=== PATIENT | male | born 1935 | race Caucasian/White ===

== ENCOUNTER → 2020-04-24 | Outpatient (CLI) | payer MEDICARE, BC ==
[~2020-04-24] MED LIST: BIMA01SOL OS; COMB0.2S OS; SIMV40TA20 PO
== END ==
LOC: M LABSMTC 10:18
PROVIDERS: ATTEND Anesthesiology
DX: Z01.818 Encounter for other preprocedural examination (principal); Z11.59 Encounter for screening for other viral diseases
CPT/HCPCS: C9803; U0003

== ENCOUNTER 2020-04-27 07:52 | Day surgery (SDC) | payer MEDICARE, BC ==
[~2020-04-27] VITALS: Ht 177.8 cm; Wt 88.5 kg
[~2020-04-27 07:52] MED LIST changes: +ACETAMINOPHEN 325 MG TAB PO PRN; +ACETYLCHOLINE OPHTH SOLN 1% 2ML (MIOCHOL-E) As Ordered ONE; +BALANCED SALT IRRIGATION SOLUTION 500ML BAG (FOR OR EYE MACHINE) As Ordered ONE; +CEFUROXIME 1MG/0.1ML INTRACAMERAL INJ As Ordered ONE; +HEALON DUET PRO(HEALON 10MG/ML 0.55ML & HEALON ENDOCOAT 30MG/ML 0.85ML) As Ordered ONE; +LIDOCAINE 1% SDV 5ML VIAL As Ordered ONE; +LIDOCAINE 3.5 % 1ML OPHTH TOPICAL GEL OU ONE; +POVIDONE-IODINE 5% OPHTH PREP SOL 30ML As Ordered ONE; +PROPARACAINE 0.5% OPHTH SOL 15ML OS PRN; +mitoMYcin 0.2 MG/VIAL KIT FOR OPHTHALMIC USE (J7315 PER 0.2MG) As Ordered ONE
[2020-04-27] MEDS ORDERED: MIDAZOLAM INJ 2MG/2ML VIAL (J2250 PER 1MG) As Ordered ONE (09:00)
[2020-04-27] MEDS ORDERED: fentaNYL 100 MCG/2 ML INJECTION (J3010) As Ordered ONE (09:00)
[2020-04-27] MEDS ORDERED: KETOROLAC 0.5% OPHTH SOLN OS ONE (10:00)
[2020-04-27] MEDS ORDERED: TRIMETHOBENZAMIDE 300 MG CAP PO PRN (10:00)
[2020-04-27] MEDS ORDERED: AcetaZOLAMIDE 500 MG ER CAP PO ONE (10:00)
[2020-04-27 10:20] VITALS: BP 165/92
--- NOTE | 2020-05-05 10:12 | RO ---
DATE OF PROCEDURE: 04/27/2020 PREPROCEDURE DIAGNOSIS: Open angle glaucoma left eye. POSTPROCEDURE DIAGNOSIS: Open angle glaucoma left eye. PROCEDURE PERFORMED: Insertion of Xen implant. SURGEON: Nisa Conrad MD TUBER MACHINE CUTTER: ANESTHESIA: Topical with sedation. DESCRIPTION OF PROCEDURE: The patient was prepped and draped in the usual fashion. A lid speculum was placed between the lids. The eye was fixated. A stab incision was made to the anterior chamber at approximately the 2 o'clock position. 1% nonpreserved lidocaine was instilled and viscoelastic was instilled. The eye was refixated and 1.8 mm keratome was used to make a clear corneal temporal limbal incision approximately at the 5 o'clock position. Mitomycin was then injected subconjunctivally over the superior nasal quadrant and with a wet cotton tip was gently massaged back towards the globe to clear off the area. The fixation device was placed through the fixation incision at the 2 o'clock position and the Xen was placed through the main incision. The needle went across the eye through the trabecular meshwork was visualized underneath the conjunctiva. The Xen was gently inserted with no difficulty. A bleb immediately formed. The Healon was irrigated out and the wound hydrated and cefuroxime installed. The patient tolerated the procedure well and went to the recovery room in stable condition.
== END 2020-04-27 10:25 | disposition home or self-care (01) ==
LOC: M SDC 07:52
PROVIDERS: ATTEND Ophthalmology
DX: H40.812 Glaucoma with increased episcleral venous pressure, left eye (principal)
CPT/HCPCS: 66183; C1783; J2250; J3010; J7315

== ENCOUNTER 2021-07-07 12:34 | Inpatient (IN) | payer MEDICARE, BC ==
[~2021-07-07] VITALS: Ht 172.7 cm; Wt 83.7 kg
[~2021-07-07 12:34] MED LIST changes: -ACETAMINOPHEN 325 MG TAB PO PRN; -ACETYLCHOLINE OPHTH SOLN 1% 2ML (MIOCHOL-E) As Ordered ONE; -BALANCED SALT IRRIGATION SOLUTION 500ML BAG (FOR OR EYE MACHINE) As Ordered ONE; -CEFUROXIME 1MG/0.1ML INTRACAMERAL INJ As Ordered ONE; -HEALON DUET PRO(HEALON 10MG/ML 0.55ML & HEALON ENDOCOAT 30MG/ML 0.85ML) As Ordered ONE; -LIDOCAINE 1% SDV 5ML VIAL As Ordered ONE; -LIDOCAINE 3.5 % 1ML OPHTH TOPICAL GEL OU ONE; -POVIDONE-IODINE 5% OPHTH PREP SOL 30ML As Ordered ONE; -PROPARACAINE 0.5% OPHTH SOL 15ML OS PRN; -mitoMYcin 0.2 MG/VIAL KIT FOR OPHTHALMIC USE (J7315 PER 0.2MG) As Ordered ONE
[2021-07-07] MEDS ORDERED: LIDOCAINE 2% 5ML JELLY UROJET TOP ONE (15:15)
[2021-07-07 16:24] LABS: APPEARANCE, URINE MANUAL TURBID (CLEAR); COLOR, URINE MANUAL RED (YELLOW)
[2021-07-07 16:25] LABS: PH,URINE MAN OBSCURED UNITS (5.0 - 7.0)
[2021-07-07 16:32] LABS: BILIRUBIN, URINE MANUAL OBSCURED (NEGATIVE); BLOOD URINE MANUAL POSITIVE (NEGATIVE); KETONE, URINE MANUAL OBSCURED mg/dL (NEGATIVE); LEUKOCYTE ESTERASE, URINE MAN OBSCURED (NEGATIVE); NITRITE, URINE MANUAL OBSCURED (NEGATIVE); SPECIFIC GRAVITY,URINE MANUAL 1.024 (1.002-1.035); UROBILINOGEN, URINE MANUAL OBSCURED mg/dl (NORMAL)
[2021-07-07 16:42] LABS: GLUCOSE, URINE (UA) MANUAL NEGATIVE (NEGATIVE); PROTEIN, URINE MANUAL 3+ mg/dL (NEGATIVE)
[2021-07-07] MEDS ORDERED: ACETAMINOPHEN 500 MG TAB PO ONE (16:45)
[2021-07-07 16:57] LABS: BACTERIA, URINE SMALL AMOUNT; HYALINE CAST, URINE NONE SEEN /lpf (0-1); RBC, URINE TNTC /hpf (0-3); SQUAMOUS EPITHELIAL CELL URINE NONE SEEN /hpf (SMALL AMT); WBC, URINE 30-40 /hpf (0-3)
[2021-07-07 18:16] LABS: BASO % 0.2 % (0.0-1.0); HEMATOCRIT 40.9 % (42.0-52.0); HEMOGLOBIN 14.1 g/dl (13.5-17.5); LYMPH # 0.7 10^3/uL (1.5-5.0); LYMPH % 6.7 % (24.0-44.0); MEAN CORPUSCULAR HEMOGLOBIN 32.9 pg (27.0-33.0); MEAN CORPUSCULAR HGB CONC 34.5 g/dl (32.0-36.5); MEAN CORPUSCULAR VOLUME 95.3 fl (80.0-96.0); MONO # 0.4 10^3/uL (0.0-0.8); MONO % 4.1 % (2.0-8.0); NEUTROPHILS # 9.2 10^3/uL (1.5-8.5); NEUTROPHILS % 88.7 % (36.0-66.0); PLATELET COUNT, AUTOMATED 182 10^3/uL (150-450); RED BLOOD COUNT 4.29 10^6/uL (4.30-6.10); WHITE BLOOD COUNT 10.4 10^3/uL (4.0-10.0)
--- NOTE | 2021-07-07 18:21 | REPVR ---
PROCEDURE INFORMATION: Exam: CT Abdomen And Pelvis Without Contrast Exam date and time: 07/07/2021 5:20 PM Age: 85 years old Clinical indication: Abdominal pain; Prior surgery; Additional info: Diffuse abd pain, hematuria/urinary retention TECHNIQUE: Imaging protocol: Computed tomography of the abdomen and pelvis without contrast. Radiation optimization: All CT scans at this facility use at least one of these dose optimization techniques: automated exposure control; mA and/or kV adjustment per patient size (includes targeted exams where dose is matched to clinical indication); or iterative reconstruction. COMPARISON: No relevant prior studies available. FINDINGS: Limitations: Absence of intravenous contrast limits evaluation of vascular and visceral structures. Mediastinal space: There is a small hiatal hernia. Liver: There are no focal liver lesions. Gallbladder and bile ducts: Cholelithiasis. Pancreas: The pancreas is normal. Spleen: The spleen is unremarkable. Adrenal glands: The adrenal glands are unremarkable. Kidneys and ureters: No right hydronephrosis or renal calculi. There is mild perinephric stranding. There are multiple left renal calculi largest measures 4.5 mm. There is also an exophytic left renal lesion measuring 2 cm. It is poorly characterized but may be solid. There is no left hydronephrosis. Perinephric stranding is apparent. Stomach and bowel: There is no evidence of intestinal obstruction. Appendix: No evidence of appendicitis. Intraperitoneal space: Unremarkable. No free air. No significant fluid collection. Vasculature: There is no evidence of an infrarenal abdominal aortic aneurysm. There is mild atherosclerotic calcification. Lymph nodes: Unremarkable. No enlarged lymph nodes. Urinary bladder: There is a Butler catheter in the urinary bladder which appears to be distended with radiodense material possibly representing blood clot. Bladder tumor cannot be excluded due to the large amount of radiodense material. Reproductive: Prostatic enlargement. Bones/joints: Skeletal degeneration. Soft tissues: Unremarkable. IMPRESSION: 1. Cholelithiasis. 2. Urinary bladder is likely filled with hemorrhage. 3. 2 cm exophytic left renal lesion which could represent a hemorrhagic cyst or solid mass. There also left renal calculi. Recommend non-emergent MRI without and with contrast or non-emergent CT without and with contrast. COMMENTS: Consistent with the [employer]'s Incidental Findings Committee white paper (J Am Guerline Radiol 2018): Any incidental renal lesion less than 1 cm or classified as too small to characterize, or any incidental cystic renal lesion characterized as simple-appearing, is likely benign. No follow-up imaging is recommended for these lesions per consensus recommendations based on imaging criteria. Electronically signed by: Donna Bernabe On 07/07/2021 18:20:52 PM
[2021-07-07 18:29] LABS: INR 1.12; PROTHROMBIN TIME 14.8 SECONDS (12.7-14.5)
[2021-07-07 18:30] LABS: PARTIAL THROMBOPLASTIN TIME 31.2 SECONDS (25.9-37.0)
[2021-07-07 18:44] LABS: RSV AMPLIFICATION NEGATIVE (NEGATIVE)
[2021-07-07 18:46] LABS: ALBUMIN 3.7 GM/DL (3.2-5.2); ALT/SGPT 34 U/L (12-78); BILIRUBIN,DIRECT 0.2 MG/DL (0.0-0.2); BILIRUBIN,TOTAL 0.7 MG/DL (0.2-1.0); BLOOD UREA NITROGEN 18 MG/DL (7-18); CALCIUM LEVEL 9.3 MG/DL (8.8-10.2); CARBON DIOXIDE LEVEL 28 MEQ/L (21-32); CHLORIDE LEVEL 109 MEQ/L (98-107); CREATININE FOR GFR 0.95 MG/DL (0.70-1.30); GLOMERULAR FILTRATION RATE > 60.0 (>35); GLUCOSE, FASTING 145 MG/DL (70-100); LIPASE 49 U/L (73-393); POTASSIUM SERUM 4.3 MEQ/L (3.5-5.1); SODIUM LEVEL 143 MEQ/L (136-145); TOTAL PROTEIN 6.4 GM/DL (6.4-8.2)
[2021-07-07] MEDS ORDERED: ICAPCAP3 PO (20:00)
[2021-07-07] MEDS ORDERED: D 1010004 PO (20:00)
[2021-07-07] MEDS ORDERED: HOME MED LIST COMPLETE! XX SCH (20:05)
[2021-07-07] MEDS ORDERED: ACETAMINOPHEN TAB 650MG DOSE (2X325MG) PO PRN (20:20)
[2021-07-07] MEDS ORDERED: NS 1,000 ML IV SCH (21:45)
--- NOTE | 2021-07-07 21:53 | HPEPDOC ---
General Date of Admission Jul 07, 2021 at 20:19 Date of Service: Jul 07, 2021 Chief Complaint The patient is a 85-year-old male admitted with a reason for visit of Urinary Retention, Uti. 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 Pt reports he self caths four times daily for past 4 years and last night he noted it was bloody. He did describe clots today and came to ED. Pt reports some mild abdominal cramping lower. BS completed and pt found to have 600ml retention. Pt was manually irrigated by urology and pain relieved in ED. Pt denies sob, cp, fever/chills, constipation, sinus congestions or cough. He describes no recent blood thinners or hx of bladder cancer or cysts. He underwent CT a/p which showed likely hemorrhage in bladder and renal lesion / cysts of left kidney with recommendations of further imaging.. Pt will be admitted for further eval and management of presenting concerns. Home Medications Scheduled Antiox.mv No.10/Omeg3s/Lut/Kayli (I-Caps with Lutein-[place] 3 Sfg) 1 Each Capsule, 1 CAP PO DAILY, (Reported) Cholecalciferol (Vitamin D3) (Vitamin D3) 25 Mcg Capsule, 25 MCG PO DAILY, (Reported) Simvastatin (Simvastatin) 40 Mg Tablet, 40 MG PO QHS, (Reported) Allergies Coded Allergies: No Known Allergies (Unverified , 04/21/20) Past Medical History Medical History self cath d/t bladder muscle atrophy, hdl, NIDDM, glaucoma Surgical History TURP Family History Significant Family History: No pertinent family hx Social History * Smoker: current smoker, cigar Alcohol: rarely Drugs: denies Recent Travel/Sick Contacts: Denies: Recent travel, Recent sick contacts Psychosocial History: No pertinent psych hx A-FIB/CHADSVASC A-FIB History Current/History of A-Fib/PAF?: No Current PO Anticoag Therapy: No Review of Systems Constitutional: Denies: Chills, Fever, Night Sweats Eyes: Denies: Pain, Vision change ENT: Denies: Head Aches, Ear Pain, Dysphagia Skin: Denies: Rash, Lesions, Breakdown Pulmonary: Denies: Dyspnea, Cough Cardiovascular: Denies: Chest Pain, Palpitations, Orthopnea, Paroxysmal Noc. Dyspnea, Lt Headedness Gastrointestinal: Reports: Abdominal Pain; Denies: Nausea, Vomiting, Diarrhea Genitourinary: Reports: Hematuria; Denies: Dysuria, Frequency, Incontinence, Retention Hematologic: Denies: Bruising, Bleeding Excessively Musculoskeletal: Denies: Neck Pain, Back Pain, Joint Pain, Muscle Pain, Spasms Neurological: Denies: Weakness, Numbness, Change in speech, Confusion Psych: Reports: Mood Normal; Denies: Depression, Memory Issues Physical Examination General Exam: Positive: Alert, No Acute Distress Eye Exam: Positive: PERRLA, Conjunctiva & lids normal, EOMI; Negative: Sclera icteric ENT Exam: Positive: Atraumatic, Mucous membr. moist/pink, Pharynx Normal Neck Exam: Positive: Supple; Negative: JVD, thyromegaly Chest Exam: Positive: Clear to auscultation, Normal air movement Heart Exam: Positive: Rate Normal, Regular Rhythm, Normal S1, Normal S2, Murmurs; Negative: Rubs Telemetry: Positive: No significant arrhythmia Abdomen Exam: Positive: Normal bowel sounds, Soft; Negative: Tenderness, Hepatospenomegaly Extremity Exam: Positive: Edema (1+ bilateral pedal), Normal pulses; Negative: Clubbing, Cyanosis Skin Exam: Positive: Nl turgor and temperature; Negative: Breakdown, Lesion Neuro Exam: Positive: Normal Gait, Normal Speech, Cranial Nerves 3-12 NL, Reflexes 2+ Psych Exam: Positive: Mental status NL, Mood NL, Oriented x 3 Other physical findings bright red gross hematuria to wood with saline irrigation. minimal clots noted Vital Signs Vital Signs Date Time Temp Pulse Resp B/P (MAP) Pulse Ox O2 Delivery O2 Flow Rate FiO2 07/07/21 16:29 97.7 99 18 118/78 (91) 98 Room Air Laboratory Data Labs 24H Laboratory Tests 2 07/07/21 15:00: Bedside Urine Color (LAB) REDH, Bedside Urine Appearance (LAB) TURBIDH, Bedside Urine pH (LAB) OBSCUREDH, Bedside Urine Specific [place] (LAB 1.024, Bedside Urine Protein (LAB) 3+H, Bedside Urine Glucose (UA) NEGATIVE, Bedside Urine Ketones (LAB) OBSCUREDH, Bedside Urine Blood POSITIVEH, Bedside Urine Nitrite (LAB) OBSCUREDH, Bedside Urine Bilirubin (LAB) OBSCUREDH, Bedside Urine Urobilinogen (LAB) OBSCUREDH, Bedside Urine Leukocyte Esterase (L OBSCUREDH, Urine Sediment Examination UNSPUN, Urine RBC TNTCH, Urine WBC 30-40H, Urine Squamous Epithelial Cells NONE SEEN, Urine Bacteria SMALL AMOUNTH, Urine Hyaline Casts NONE SEEN 07/07/21 16:05: Immature Granulocyte % (Auto) 0.3, Neutrophils (%) (Auto) 88.7H, Lymphocytes (%) (Auto) 6.7L, Monocytes (%) (Auto) 4.1, Eosinophils (%) (Auto) 0.0, Basophils (%) (Auto) 0.2, Neutrophils # (Auto) 9.2H, Lymphocytes # (Auto) 0.7L, Monocytes # (Auto) 0.4, Eosinophils # (Auto) 0.0, Basophils # (Auto) 0.0, Nucleated Red Blood Cells % (auto) 0.0, Anion Gap 6L, Glomerular Filtration Rate > 60.0, Calcium Level 9.3, Total Bilirubin 0.7, Direct Bilirubin 0.2, Aspartate Amino Transf (AST/SGOT) 22, Alanine Aminotransferase (ALT/SGPT) 34, Alkaline Phosphatase 65, Total Protein 6.4, Albumin 3.7, Albumin/Globulin Ratio 1.4, Lipase 49L 07/07/21 16:17: Prothrombin Time 14.8H, Prothromb Time International Ratio 1.12, Activated Partial Thromboplast Time 31.2 07/07/21 17:48: Coronavirus (COVID-19)(PCR) NEGATIVE, Influenza Type A (RT-PCR) NEGATIVE, Influenza Type B (RT-PCR) NEGATIVE, Respiratory Syncytial Virus (PCR) NEGATIVE 07/07/21 20:49: Lactic Acid Level 1.9 CBC/BMP Laboratory Tests 07/07/21 16:05 Microbiology Microbiology 07/07/21 Urine Culture, Received Pending RAD Interpretation STUDY: CT abdomen pelvis Rad Actions: Report Reviewed RAD Interpretation: Other Result Comments: (2 cm exophytic left renal lesion which could represent a hemorrhagic cyst or mass. Recommendations for nonemergent further imaging.) Assessment/Plan 1. Hematuria in pt with history of TURP: Patient reports daily self catheterization for several years. He denies any trauma or history of hematuria. CT reports likely hemorrhage and bladder. Plan for CBI appreciate urology recommendations. Monitor H&H. *Patient is agreeable to blood if he should require transfusion. He believes he may have had a transfusion in the past when he had his procedure done years ago but is not sure. 2. Exophytic left renal lesion/ cyst: Possible hemorrhagic cyst or mass. Plan for further imaging tomorrow. Monitor patient symptoms and H&H per *CT also noted renal calculi -patient with no further abdominal discomfort or back pain. No hydronephrosis process or ureteral obstruction noted. 3. Leukocytosis; presumed UTI: Pt with self cath and likely colonized. He is fortunately without systematic complaints. Monitor for worsening s/s infection. Will cover empirically at present. 4. NIDDM: Patient reports that he has not required any insulin after managing with diet and exercise. Will check A1c and consider coverage pending patient response. 5. Murmur: Pt denies hx. Plan for monitoring. EKG. Consider echo. 6. HDL: Continue statin DVT prophylaxis: SCDs CODE: FULL Dispo: Anticipate 2 nights Plan / VTE VTE Prophylaxis Ordered?: Yes KELVIN DEVLIN NP Jul 07, 2021 21:52
--- NOTE | 2021-07-07 22:20 | SMCUROLCON ---
Urology Consultation General Date of Consultation 07/07/21 Reason For Consultation This patient is seen for Urinary Retention, Uti. 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 Pt reports he self caths four times daily and last night he noted it was bloody. He did describe clots today and came to ED. Pt reports some mild abdominal cramping lower. BS completed and pt found to have 600ml retention. Pt was manually irrigated and pain relieved in ED. Pt denies sob, cp, fever/chills, constipation, sinus congestions or cough. He describes no recent blood thinners or hx of bladder cancer or cysts. He underwent CT a/p whic h showed likely hemorrhage of bladder and renal lesion / cysts of left kidney with recommendations of further imaging tomorrow. Pt will be admitted for further eval and CBI. Medications Current Medications Current Medications Medications (Trade) Dose Ordered Sig/[place] Route PRN Reason Start Time Stop Time Status Last Admin Dose Admin Acetaminophen (Tylenol Tab) 650 mg Q4H PRN PO MILD PAIN or TEMP > 101 07/07/21 20:20 Ceftriaxone Sodium 1 gm/ Dextrose 50 ml @ 100 mls/hr Q24H IV 07/07/21 22:00 Fish Oil ([place]-3 (1000mg)) 1 cap DAILY PO 07/08/21 09:00 Home Med (Home Med List Complete!) ASDIRECTED XX 07/07/21 20:05 07/07/21 20:05 DC Multivitamins (Ocuvite(I-Maia)) 1 tab DAILY PO 07/08/21 09:00 Simvastatin (Zocor) 40 mg QHS PO 07/07/21 21:00 Sodium Chloride 1,000 ml @ 75 mls/hr [id number] IV 07/07/21 21:45 07/08/21 11:04 Vitamin D (Vitamin D) 1,000 units DAILY PO 07/08/21 09:00 Allergies Allergies: Coded Allergies: No Known Allergies (Unverified , 04/21/20) Review of Systems General: Denies: ROS Unobtainable, Chills, Night Sweats, Fatigue, Malaise, Normal Appetite, Other Symptoms Constitutional: Denies: Fever, Chills, Sweats, Weakness, Malaise, Other Eyes: Denies: Pain, Vision change, Conjunctivae inflammation, Eyelid inflammation, Redness, Other Skin: Denies: Rash, Lesions, Jaundice, Bruising, Itching, Dry, Breakdown, Nail Changes, Other Gastrointestinal: Denies: Nausea, Vomiting, Abdominal Pain, Diarrhea, Constipation, Melena, Hematochezia, Other Symptoms Genitourinary: Reports: Retention Hematologic: Denies: Bruising, Bleeding Excessively, Petecchia, Purpura, Enlarged Lymph Nodes, Other Hematologic Endocrine: Denies: Polydipsia, Polyphagia, Polyuria, Heat Intolerance, Cold Intolerance, Other Endocrine Sx Physical Examination General Exam: Alert, Cooperative, No Acute Distress EYE EXAM: Conjunctiva & lids normal ENT EXAM: Atraumatic, Mucous membr. moist/pink, Tongue Midline Neck Exam: Supple Chest Exam: Clear to auscultation Heart Exam: Rate Normal Abdomen Exam: BS Hyperactive, BS Hypoactive, Soft, Other; No: Normal Bowel Sounds, Tenderness, Hepatospenomegaly, Mass, Hernia Male Exam: Normal Genital Exam Extremity Exam: No: Clubbing, Cyanosis, Edema, Normal Pulses, Tenderness, Swelling, Other Vital Signs/I&O Vital Signs Date Time Temp Pulse Resp B/P (MAP) Pulse Ox O2 Delivery O2 Flow Rate FiO2 07/07/21 22:04 97.1 95 18 113/78 (90) 98 Room Air Laboratory Data 24H Labs Laboratory Tests 2 07/07/21 15:00: Bedside Urine Color (LAB) REDH, Bedside Urine Appearance (LAB) TURBIDH, Bedside Urine pH (LAB) OBSCUREDH, Bedside Urine Specific [place] (LAB 1.024, Bedside Urine Protein (LAB) 3+H, Bedside Urine Glucose (UA) NEGATIVE, Bedside Urine Ketones (LAB) OBSCUREDH, Bedside Urine Blood POSITIVEH, Bedside Urine Nitrite (LAB) OBSCUREDH, Bedside Urine Bilirubin (LAB) OBSCUREDH, Bedside Urine Urobilinogen (LAB) OBSCUREDH, Bedside Urine Leukocyte Esterase (L OBSCUREDH, Urine Sediment Examination UNSPUN, Urine RBC TNTCH, Urine WBC 30-40H, Urine Squamous Epithelial Cells NONE SEEN, Urine Bacteria SMALL AMOUNTH, Urine Hyaline Casts NONE SEEN 07/07/21 16:05: Immature Granulocyte % (Auto) 0.3, Neutrophils (%) (Auto) 88.7H, Lymphocytes (%) (Auto) 6.7L, Monocytes (%) (Auto) 4.1, Eosinophils (%) (Auto) 0.0, Basophils (%) (Auto) 0.2, Neutrophils # (Auto) 9.2H, Lymphocytes # (Auto) 0.7L, Monocytes # (Auto) 0.4, Eosinophils # (Auto) 0.0, Basophils # (Auto) 0.0, Nucleated Red Blood Cells % (auto) 0.0, Anion Gap 6L, Glomerular Filtration Rate > 60.0, Calcium Level 9.3, Total Bilirubin 0.7, Direct Bilirubin 0.2, Aspartate Amino Transf (AST/SGOT) 22, Alanine Aminotransferase (ALT/SGPT) 34, Alkaline Phosphatase 65, Total Protein 6.4, Albumin 3.7, Albumin/Globulin Ratio 1.4, Lipase 49L 07/07/21 16:17: Prothrombin Time 14.8H, Prothromb Time International Ratio 1.12, Activated Partial Thromboplast Time 31.2 07/07/21 17:48: Coronavirus (COVID-19)(PCR) NEGATIVE, Influenza Type A (RT-PCR) NEGATIVE, Influenza Type B (RT-PCR) NEGATIVE, Respiratory Syncytial Virus (PCR) NEGATIVE 07/07/21 20:49: Lactic Acid Level 1.9 CBC/BMP Laboratory Tests 07/07/21 16:05 Microbiology Microbiology 07/07/21 Urine Culture, Received Pending Assessment Patient 85 years old with CIC for 4 to 5 years status post TURP. Patient cath himself today I received significant hematuria return. A cath 22 Swedish with 30 cc balloon was placed without difficulty. Balloon initially had 10 cc. I noticed this during my evaluation and we increased the the balloon to 30 cc. I performed manual irrigation of the bladder and remove the great deal of clot. At the end of irrigation x3 the urine was cardona Jim-Aid colored. Plan Admit patient Continue CBI. Time Spent on Consult: Time Spent / Consult (Minutes): 40 (bladder irrigation 30 mins. consultation with patient 10) DELORES LIM MD Jul 07, 2021 22:20
[2021-07-07] MEDS: SIMVASTATIN 40 MG TAB PO SCH (22:46)
[2021-07-07] MEDS: cefTRIAXone SOD 1 GM in D5W MINI-BAG PLUS 50 ML IV SCH (22:48)
[2021-07-07 23:00] VITALS: BP 121/80
[2021-07-08 00:58] LABS: HEMATOCRIT 35.6 % (42.0-52.0); HEMOGLOBIN 12.4 g/dl (13.5-17.5)
[2021-07-08 06:00] VITALS: BP 119/79
[2021-07-08 06:41] LABS: BASO % 0.3 % (0.0-1.0); HEMATOCRIT 34.7 % (42.0-52.0); HEMOGLOBIN 11.9 g/dl (13.5-17.5); LYMPH # 1.2 10^3/uL (1.5-5.0); LYMPH % 11.2 % (24.0-44.0); MEAN CORPUSCULAR HEMOGLOBIN 33.2 pg (27.0-33.0); MEAN CORPUSCULAR HGB CONC 34.3 g/dl (32.0-36.5); MEAN CORPUSCULAR VOLUME 96.9 fl (80.0-96.0); MONO # 0.8 10^3/uL (0.0-0.8); MONO % 7.5 % (2.0-8.0); NEUTROPHILS # 8.3 10^3/uL (1.5-8.5); NEUTROPHILS % 80.6 % (36.0-66.0); PLATELET COUNT, AUTOMATED 187 10^3/uL (150-450); RED BLOOD COUNT 3.58 10^6/uL (4.30-6.10); WHITE BLOOD COUNT 10.3 10^3/uL (4.0-10.0)
[2021-07-08 06:44] LABS: HEMATOCRIT 34.6 % (42.0-52.0); HEMOGLOBIN 11.8 g/dl (13.5-17.5)
[2021-07-08 07:02] LABS: HEMOGLOBIN A1c 5.7 %
[2021-07-08 07:04] LABS: BLOOD UREA NITROGEN 22 MG/DL (7-18); CALCIUM LEVEL 8.8 MG/DL (8.8-10.2); CARBON DIOXIDE LEVEL 25 MEQ/L (21-32); CHLORIDE LEVEL 110 MEQ/L (98-107); CREATININE FOR GFR 0.74 MG/DL (0.70-1.30); GLOMERULAR FILTRATION RATE > 60.0 (>35); GLUCOSE, FASTING 147 MG/DL (70-100); SODIUM LEVEL 143 MEQ/L (136-145)
--- NOTE | 2021-07-08 07:32 | IPNPDOC ---
Subjective Review oF Systems Chief Complaint The patient is a 85-year-old male admitted with a reason for visit of Urinary Retention, Uti. Events since Last Encounter Stable throughout the night. CBI on low with nico aid colored urine. need for irrigation x 1 Objective Physical Examination Heart Exam: Positive: Rate Normal, Regular Rhythm, Normal S1, Normal S2, Murmurs; Negative: Rubs ABDOMEN EXAM: Soft; No: Normal bowel sounds, Tenderness Vital Signs/I&O Vital Signs Date Time Temp Pulse Resp B/P (MAP) Pulse Ox O2 Delivery O2 Flow Rate FiO2 07/08/21 06:00 97.7 92 18 119/79 (92) 96 Room Air I&O- Last 24 Hours up to 6 AM 07/08/21 06:00 Intake Total 212 ml Output Total 1000 ml Balance -788 ml Laboratory Data Labs 24H Laboratory Tests 2 07/07/21 15:00: Bedside Urine Color (LAB) REDH, Bedside Urine Appearance (LAB) TURBIDH, Bedside Urine pH (LAB) OBSCUREDH, Bedside Urine Specific [place] (LAB 1.024, Bedside Urine Protein (LAB) 3+H, Bedside Urine Glucose (UA) NEGATIVE, Bedside Urine Ketones (LAB) OBSCUREDH, Bedside Urine Blood POSITIVEH, Bedside Urine Nitrite (LAB) OBSCUREDH, Bedside Urine Bilirubin (LAB) OBSCUREDH, Bedside Urine Urobilinogen (LAB) OBSCUREDH, Bedside Urine Leukocyte Esterase (L OBSCUREDH, Urine Sediment Examination UNSPUN, Urine RBC TNTCH, Urine WBC 30-40H, Urine Squamous Epithelial Cells NONE SEEN, Urine Bacteria SMALL AMOUNTH, Urine Hyaline Casts NONE SEEN 07/07/21 16:05: Immature Granulocyte % (Auto) 0.3, Neutrophils (%) (Auto) 88.7H, Lymphocytes (%) (Auto) 6.7L, Monocytes (%) (Auto) 4.1, Eosinophils (%) (Auto) 0.0, Basophils (%) (Auto) 0.2, Neutrophils # (Auto) 9.2H, Lymphocytes # (Auto) 0.7L, Monocytes # (Auto) 0.4, Eosinophils # (Auto) 0.0, Basophils # (Auto) 0.0, Nucleated Red Blood Cells % (auto) 0.0, Anion Gap 6L, Glomerular Filtration Rate > 60.0, Calcium Level 9.3, Total Bilirubin 0.7, Direct Bilirubin 0.2, Aspartate Amino Transf (AST/SGOT) 22, Alanine Aminotransferase (ALT/SGPT) 34, Alkaline Phosphatase 65, Total Protein 6.4, Albumin 3.7, Albumin/Globulin Ratio 1.4, Lipase 49L 07/07/21 16:17: Prothrombin Time 14.8H, Prothromb Time International Ratio 1.12, Activated Partial Thromboplast Time 31.2 07/07/21 17:48: Coronavirus (COVID-19)(PCR) NEGATIVE, Influenza Type A (RT-PCR) NEGATIVE, I nfluenza Type B (RT-PCR) NEGATIVE, Respiratory Syncytial Virus (PCR) NEGATIVE 07/07/21 20:49: Lactic Acid Level 1.9 07/08/21 06:08: Immature Granulocyte % (Auto) 0.4, Neutrophils (%) (Auto) 80.6H, Lymphocytes (%) (Auto) 11.2L, Monocytes (%) (Auto) 7.5, Eosinophils (%) (Auto) 0.0, Basophils (%) (Auto) 0.3, Neutrophils # (Auto) 8.3, Lymphocytes # (Auto) 1.2L, Monocytes # (Auto) 0.8, Eosinophils # (Auto) 0.0, Basophils # (Auto) 0.0, Nucleated Red Blood Cells % (auto) 0.0, Anion Gap 8, Glomerular Filtration Rate > 60.0, Estimated Mean Plasma Glucose 117H, Hemoglobin A1c 5.7, Calcium Level 8.8 CBC/BMP Laboratory Tests 07/07/21 16:05 07/08/21 00:43 07/08/21 06:08 Microbiology Microbiology 07/07/21 Urine Culture, Received Pending Assessment/Plan Date Seen The patient was seen on 07/08/21. Patient Summary Pt with CBI. Urine still not totally clear. Plan/VTE VTE Prophylaxis Ordered?: Yes Plan Continue CBI at this time Will continue to evaluated for need of intraoperative clot evac. DELORES LIM MD Jul 08, 2021 07:32
[2021-07-08] MEDS: OMEGA-3 1000MG CAPSULE PO SCH (09:01)
[2021-07-08] MEDS: VITAMIN D 1,000 INTERNATIONAL UNITS TABLET PO SCH (09:01)
[2021-07-08] MEDS: OCUVITE 1 TAB PO SCH (09:01)
--- NOTE | 2021-07-08 09:13 | ECGEPIP ---
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
--- NOTE | 2021-07-08 12:23 | IPNPDOC ---
Subjective Date Seen The patient was seen on 07/08/21. Subjective Chief Complaint/HPI Patient does not have any complaints at this time. He did have some crampy lower abdominal pains earlier in the morning and overnight. He did need 1 manual bladder irrigation of clots overnight. He is on CBI with pink-colored output. Objective Physical Examination General Exam: Positive: Alert, Cooperative, No Acute Distress Eye Exam: Positive: PERRLA, Conjunctiva & lids normal, EOMI; Negative: Sclera icteric ENT Exam: Positive: Atraumatic, Mucous membr. moist/pink, Pharynx Normal Neck Exam: Positive: Supple; Negative: JVD, thyromegaly Chest Exam: Positive: Clear to auscultation, Normal air movement Heart Exam: Positive: Rate Normal, Regular Rhythm, Normal S1, Normal S2, Mu rmurs (Systolic murmur heard at the base of the heart as well as in the mitral area); Negative: Rubs Telemetry: Positive: No significant arrhythmia Abdomen Exam: Positive: Normal bowel sounds, Soft, Other (Abdominal bruit heard all over the midline from epigastric to hypogastric region); Negative: Tenderness Extremity Exam: Negative: Clubbing, Cyanosis, Edema Skin Exam: Positive: Nl turgor and temperature; Negative: Breakdown, Lesion Neuro Exam: Positive: Normal Speech, Strength at 5/5 X4 ext, Normal Tone Psych Exam: Positive: Memory Intact, Oriented x 3 Assessment /Plan Assessment Patient 85 years old with past medical history of hdl, NIDDM, glaucoma 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 Hematuria Etiology to be determined CT abdomen and pelvis showed radiodense material in the bladder likely blood clots. Cannot rule out any underlying bladder cancer CBI discontinued Continue ceftriaxone Patient has been seen by urology. Further plan as per Dr. Payne History of diabetes Now diet controlled A1c 5.7 Hyperlipidemia Continue statin Heart murmur We will get an echo Plan/VTE VTE Prophylaxis Ordered?: Yes VS, I&O, 24H, Fishbone Vital Signs/I&O Vital Signs Date Time Temp Pulse Resp B/P (MAP) Pulse Ox O2 Delivery O2 Flow Rate FiO2 07/08/21 06:00 97.7 92 18 119/79 (92) 96 Room Air I&O- Last 24 Hours up to 6 AM 9/23/21 06:00 Intake Total 212 ml Output Total 1000 ml Balance -788 ml Laboratory Data 24H LABS Laboratory Tests 2 07/07/21 15:00: Bedside Urine Color (LAB) REDH, Bedside Urine Appearance (LAB) TURBIDH, Bedside Urine pH (LAB) OBSCUREDH, Bedside Urine Specific [place] (LAB 1.024, Bedside [place] Protein (LAB) 3+H, Bedside Urine Glucose (UA) NEGATIVE, Bedside Urine Ketones (LAB) OBSCUREDH, Bedside Urine Blood POSITIVEH, Bedside Urine Nitrite (LAB) OBSCUREDH, Bedside Urine Bilirubin (LAB) OBSCUREDH, Bedside Urine Urobilinogen (LAB) OBSCUREDH, Bedside Urine Leukocyte Esterase (L OBSCUREDH, Urine Sediment Examination UNSPUN, Urine RBC TNTCH, Urine WBC 30-40H, Urine Squamous Epithelial Cells NONE SEEN, Urine Bacteria SMALL AMOUNTH, Urine Hyaline Casts NONE SEEN 07/07/21 16:05: Immature Granulocyte % (Auto) 0.3, Neutrophils (%) (Auto) 88.7H, Lymphocytes (%) (Auto) 6.7L, Monocytes (%) (Auto) 4.1, Eosinophils (%) (Auto) 0.0, Basophils (%) (Auto) 0.2, Neutrophils # (Auto) 9.2H, Lymphocytes # (Auto) 0.7L, Monocytes # (Auto) 0.4, Eosinophils # (Auto) 0.0, Basophils # (Auto) 0.0, Nucleated Red Blood Cells % (auto) 0.0, Anion Gap 6L, Glomerular Filtration Rate > 60.0, Calcium Level 9.3, Total Bilirubin 0.7, Direct Bilirubin 0.2, Aspartate Amino Transf (AST/SGOT) 22, Alanine Aminotransferase (ALT/SGPT) 34, Alkaline Phosphatase 65, Total Protein 6.4, Albumin 3.7, Albumin/Globulin Ratio 1.4, Lipase 49L 07/07/21 16:17: Prothrombin Time 14.8H, Prothromb Time International Ratio 1.12, Activated Partial Thromboplast Time 31.2 07/07/21 17:48: Coronavirus (COVID-19)(PCR) NEGATIVE, Influenza Type A (RT-PCR) NEGATIVE, Influenza Type B (RT-PCR) NEGATIVE, Respiratory Syncytial Virus (PCR) NEGATIVE 07/07/21 20:49: Lactic Acid Level 1.9 07/08/21 06:08: Immature Granulocyte % (Auto) 0.4, Neutrophils (%) (Auto) 80.6H, Lymphocytes (%) (Auto) 11.2L, Monocytes (%) (Auto) 7.5, Eosinophils (%) (Auto) 0.0, Basophils (%) (Auto) 0.3, Neutrophils # (Auto) 8.3, Lymphocytes # (Auto) 1.2L, Monocytes # (Auto) 0.8, Eosinophils # (Auto) 0.0, Basophils # (Auto) 0.0, Nucleated Red Blood Cells % (auto) 0.0, Anion Gap 8, Glomerular Filtration Rate > 60.0, Estimated Mean Plasma Glucose 117H, Hemoglobin A1c 5.7, Calcium Level 8.8 CBC/BMP Laboratory Tests 07/07/21 16:05 07/08/21 00:43 07/08/21 06:08 Microbiology Microbiology 07/07/21 Urine Culture - Final, Complete Nicky Garner MD Jul 08, 2021 12:23
[2021-07-08 14:00] VITALS: BP 118/64
[2021-07-08 20:30] VITALS: BP 105/73
[2021-07-08] MEDS: cefTRIAXone SOD 1 GM in D5W MINI-BAG PLUS 50 ML IV SCH (21:12)
[2021-07-08] MEDS: SIMVASTATIN 40 MG TAB PO SCH (21:12)
[2021-07-09 06:00] VITALS: BP 122/67
[2021-07-09 07:03] LABS: BASO % 0.3 % (0.0-1.0); EOS # 0.1 10^3/uL (0.0-0.5); EOS % 0.5 % (0.0-3.0); HEMATOCRIT 29.4 % (42.0-52.0); LYMPH # 1.7 10^3/uL (1.5-5.0); LYMPH % 16.5 % (24.0-44.0); MEAN CORPUSCULAR HEMOGLOBIN 33.4 pg (27.0-33.0); MEAN CORPUSCULAR VOLUME 98.3 fl (80.0-96.0); MONO # 0.8 10^3/uL (0.0-0.8); MONO % 7.7 % (2.0-8.0); NEUTROPHILS # 7.8 10^3/uL (1.5-8.5); NEUTROPHILS % 74.5 % (36.0-66.0); PLATELET COUNT, AUTOMATED 151 10^3/uL (150-450); RED BLOOD COUNT 2.99 10^6/uL (4.30-6.10); WHITE BLOOD COUNT 10.5 10^3/uL (4.0-10.0)
[2021-07-09 07:09] LABS: BLOOD UREA NITROGEN 21 MG/DL (7-18); CALCIUM LEVEL 8.4 MG/DL (8.8-10.2); CARBON DIOXIDE LEVEL 29 MEQ/L (21-32); CHLORIDE LEVEL 106 MEQ/L (98-107); CREATININE FOR GFR 0.69 MG/DL (0.70-1.30); GLOMERULAR FILTRATION RATE > 60.0 (>35); GLUCOSE, FASTING 135 MG/DL (70-100); SODIUM LEVEL 143 MEQ/L (136-145)
--- NOTE | 2021-07-09 09:26 | REP ---
INDICATION: abdominal bruit. COMPARISON: CT 07/07/2021. TECHNIQUE: Real-time sonographic evaluation of the abdominal aorta performed. FINDINGS: There is no sonographic evidence of abdominal aortic aneurysm. Maximum AP diameter of abdominal aorta: Proximal (at diaphragm):2.8 cm. Peak systolic velocity 55.6 centimeters/second At renal artery level: Obscured by bowel gas Mid abdominal aorta:1.9 cm. Peak systolic velocity 44.8 centimeter/second Distal abdominal aorta (prebifurcation): 1.8 cm. Peak systolic velocity 76.4 centimeter/second The common iliac arteries are obscured by bowel gas. IMPRESSION: No sonographic evidence of abdominal aortic aneurysm.Normal flow velocities in the visualized abdominal aorta. The abdominal aorta at the level of the renal arteries and both common iliac arteries are obscured by overlying bowel gas. <Electronically signed by Armando Mcneill > 07/09/21 0922
[2021-07-09] MEDS: OCUVITE 1 TAB PO SCH (10:49)
[2021-07-09] MEDS: OMEGA-3 1000MG CAPSULE PO SCH (10:49)
[2021-07-09] MEDS: VITAMIN D 1,000 INTERNATIONAL UNITS TABLET PO SCH (10:50)
--- NOTE | 2021-07-09 12:04 | IPNPDOC ---
Subjective Date Seen The patient was seen on 07/09/21. Subjective Chief Complaint/HPI CBI still running at high with Jim-Aid colored urine. On reducing the rate sediments and clots are seen. No abdominal pain. Objective Physical Examination General Exam: Positive: Alert, Cooperative, No Acute Distress Eye Exam: Positive: PERRLA, Conjunctiva & lids normal, EOMI; Negative: Sclera icteric ENT Exam: Positive: Atraumatic, Mucous membr. moist/pink, Pharynx Normal Neck Exam: Positive: Supple; Negative: JVD, thyromegaly Chest Exam: Positive: Clear to auscultation, Normal air movement Heart Exam: Positive: Rate Normal, Regular Rhythm, Normal S1, Normal S2, Murmurs (Systolic murmur heard at the base of the heart as well as in the mitral area); Negative: Rubs Telemetry: Positive: No significant arrhythmia Abdomen Exam: Positive: Normal bowel sounds, Soft, Other (Abdominal bruit heard all over the midline from epigastric to hypogastric region); Negative: Tenderness Extremity Exam: Negative: Clubbing, Cyanosis, Edema Skin Exam: Positive: Nl turgor and temperature; Negative: Breakdown, Lesion Neuro Exam: Positive: Normal Speech, Strength at 5/5 X4 ext, Normal Tone Psych Exam: Positive: Memory Intact, Oriented x 3 Assessment /Plan Assessment Patient 85 years old with past medical history of hdl, NIDDM, glaucoma 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 Hematuria Etiology to be determined CT abdomen and pelvis showed radiodense material in the bladder likely blood clots. Cannot rule out any underlying bladder cancer On CBI Continue ceftriaxone Patient has been seen by urology. Further plan as per Dr. Payne History of diabetes Now diet controlled A1c 5.7 Hyperlipidemia Continue statin Heart murmur and abdominal aortic bruit We will get an echo Aortic and iliac vascular ultrasound negative for any aortic aneurysm or any flow restriction. Plan/VTE VTE Prophylaxis Ordered?: Yes VS, I&O, 24H, Fishbone Vital Signs/I&O Vital Signs Date Time Temp Pulse Resp B/P (MAP) Pulse Ox O2 Delivery O2 Flow Rate FiO2 07/09/21 06:00 97.0 77 18 122/67 (85) 93 Room Air I&O- Last 24 Hours up to 6 AM 07/09/21 06:00 Intake Total 915 ml Output Total 6520 ml Balance -5605 ml Laboratory Data 24H LABS Laboratory Tests 2 07/09/21 06:16: Immature Granulocyte % (Auto) 0.5, Neutrophils (%) (Auto) 74.5H, Lymphocytes (%) (Auto) 16.5L, Monocytes (%) (Auto) 7.7, Eosinophils (%) (Auto) 0.5, Basophils (%) (Auto) 0.3, Neutrophils # (Auto) 7.8, Lymphocytes # (Auto) 1.7, Monocytes # (Auto) 0.8, Eosinophils # (Auto) 0.1, Basophils # (Auto) 0.0, Nucleated Red Blood Cells % (auto) 0.0, Anion Gap 8, Glomerular Filtration Rate > 60.0, Calcium Level 8.4L CBC/BMP Laboratory Tests 07/09/21 06:16 Microbiology Microbiology 07/07/21 Urine Culture - Final, Complete Nicky Garner MD Jul 09, 2021 12:04
[2021-07-09 14:00] VITALS: BP 115/66
[2021-07-09 19:40] VITALS: BP 103/61
[2021-07-09] MEDS: SIMVASTATIN 40 MG TAB PO SCH (21:03)
[2021-07-09] MEDS: cefTRIAXone SOD 1 GM in D5W MINI-BAG PLUS 50 ML IV SCH (21:03)
--- NOTE | 2021-07-09 21:19 | IPNPDOC ---
Subjective Review oF Systems Chief Complaint The patient is a 85-year-old male admitted with a reason for visit of Urinary Retention, Uti. Events since Last Encounter Patient still on mid to moderate rate CBI with cardona nico aid colored urine. He has required seldom irrigation. Objective Physical Examination Heart Exam: Positive: Rate Normal, Regular Rhythm, Normal S1, Normal S2, M urmurs (Systolic murmur heard at the base of the heart as well as in the mitral area); Negative: Rubs ABDOMEN EXAM: BS Hyperactive, Soft, Mass, Hernia, Other; No: Normal bowel sounds, BS Hypoactive, Tenderness, Hepatospenomegaly Vital Signs/I&O Vital Signs Date Time Temp Pulse Resp B/P (MAP) Pulse Ox O2 Delivery O2 Flow Rate FiO2 07/09/21 19:40 98.2 92 18 103/61 (75) 95 Room Air I&O- Last 24 Hours up to 6 AM 07/09/21 06:00 Intake Total 915 ml Output Total 6520 ml Balance -5605 ml Laboratory Data Labs 24H Laboratory Tests 2 07/09/21 06:16: Immature Granulocyte % (Auto) 0.5, Neutrophils (%) (Auto) 74.5H, Lymphocytes (%) (Auto) 16.5L, Monocytes (%) (Auto) 7.7, Eosinophils (%) (Auto) 0.5, Basophils (%) (Auto) 0.3, Neutrophils # (Auto) 7.8, Lymphocytes # (Auto) 1.7, Monocytes # (Auto) 0.8, Eosinophils # (Auto) 0.1, Basophils # (Auto) 0.0, Nucleated Red Blood Cells % (auto) 0.0, Anion Gap 8, Glomerular Filtration Rate > 60.0, Calcium Level 8.4L CBC/BMP Laboratory Tests 07/09/21 06:16 Microbiology Microbiology 07/07/21 Urine Culture - Final, Complete Assessment/Plan Date Seen The patient was seen on 07/09/21. Patient Summary Pt with CBI. I irrigated the cath and let the balloon down so that I could remove and clots draped below the balloon during irrigation. I removed several old clots with no newly formed clots removed. Urine was irrigated to clear. Balloon was reinflated to 30cc. CBI was restarted at an extremely slow rate. Urine is light pink to white zinfandel wine in color on minimal CBI. Plan/VTE VTE Prophylaxis Ordered?: Yes Plan Continue CBI at slow rate unless cath gets blocked. Irrigate as needed and increase CBI rate as needed. If required, intraoperative clot evacuation and evaluation will be performed tomorrow. If bladder continues to drain throughout tonight at the current CBI rate, will consider d/c cath tomorrow. NPO after midnight DELORES LIM MD Jul 09, 2021 21:19
[2021-07-10] VITALS (8 sets, daily range): BP systolic 102–130; BP diastolic 57–70
[2021-07-10 06:19] LABS: BASO % 0.4 % (0.0-1.0); EOS # 0.1 10^3/uL (0.0-0.5); EOS % 0.8 % (0.0-3.0); HEMATOCRIT 26.5 % (42.0-52.0); HEMOGLOBIN 9.1 g/dl (13.5-17.5); LYMPH # 1.4 10^3/uL (1.5-5.0); MEAN CORPUSCULAR HEMOGLOBIN 33.6 pg (27.0-33.0); MEAN CORPUSCULAR HGB CONC 34.3 g/dl (32.0-36.5); MEAN CORPUSCULAR VOLUME 97.8 fl (80.0-96.0); MONO # 0.6 10^3/uL (0.0-0.8); MONO % 7.4 % (2.0-8.0); NEUTROPHILS # 5.8 10^3/uL (1.5-8.5); NEUTROPHILS % 72.9 % (36.0-66.0); PLATELET COUNT, AUTOMATED 128 10^3/uL (150-450); RED BLOOD COUNT 2.71 10^6/uL (4.30-6.10); WHITE BLOOD COUNT 7.9 10^3/uL (4.0-10.0)
[2021-07-10 06:41] LABS: BLOOD UREA NITROGEN 18 MG/DL (7-18); CALCIUM LEVEL 8.6 MG/DL (8.8-10.2); CARBON DIOXIDE LEVEL 28 MEQ/L (21-32); CHLORIDE LEVEL 110 MEQ/L (98-107); CREATININE FOR GFR 0.62 MG/DL (0.70-1.30); GLOMERULAR FILTRATION RATE > 60.0 (>35); GLUCOSE, FASTING 132 MG/DL (70-100); POTASSIUM SERUM 3.8 MEQ/L (3.5-5.1); SODIUM LEVEL 142 MEQ/L (136-145)
[2021-07-10] MEDS: OCUVITE 1 TAB PO SCH (08:23)
[2021-07-10] MEDS: VITAMIN D 1,000 INTERNATIONAL UNITS TABLET PO SCH (08:24)
[2021-07-10] MEDS: OMEGA-3 1000MG CAPSULE PO SCH (08:24)
--- NOTE | 2021-07-10 09:46 | IPNPDOC ---
Subjective Review oF Systems Chief Complaint The patient is a 85-year-old male admitted with a reason for visit of Urinary Retention, Uti. Events since Last Encounter Patient with minimal CBI through the night. Catheter still draining dark urine. No irrigation was needed throughout the night. However there still may be a source of bleeding and ordered large amount of clots still in the bladder. Objective Physical Examination Heart Exam: Positive: Rate Normal, Regular Rhythm, Normal S1, Normal S2, Murmurs (Systolic murmur heard at the base of the heart as well as in the mitral area); Negative: Rubs ABDOMEN EXAM: BS Hyperactive, Soft, Mass, Hernia, Other (Abdomen : soft nontender and nondistended); No: Normal bowel sounds, BS Hypoactive, Tenderness, Hepatospenomegaly Other physical findings Catheter draining urine consistency and color of red wine. Vital Signs/I&O Vital Signs Date Time Temp Pulse Resp B/P (MAP) Pulse Ox O2 Delivery O2 Flow Rate FiO2 07/10/21 05:23 97.8 80 16 125/67 (86) 96 Room Air I&O- Last 24 Hours up to 6 AM 07/10/21 06:00 Intake Total 390 ml Output Total 1925 ml Balance -1535 ml Laboratory Data Labs 24H Laboratory Tests 2 07/10/21 05:51: Immature Granulocyte % (Auto) 0.5, Neutrophils (%) (Auto) 72.9H, Lymphocytes (%) (Auto) 18.0L, Monocytes (%) (Auto) 7.4, Eosinophils (%) (Auto) 0.8, Basophils (%) (Auto) 0.4, Neutrophils # (Auto) 5.8, Lymphocytes # (Auto) 1.4L, Monocytes # (Auto) 0.6, Eosinophils # (Auto) 0.1, Basophils # (Auto) 0.0, Nucleated Red Blood Cells % (auto) 0.0, Anion Gap 4L, Glomerular Filtration Rate > 60.0, Calcium Level 8.6L CBC/BMP Laboratory Tests 07/10/21 05:51 Microbiology Microbiology 07/07/21 Urine Culture - Final, Complete Assessment/Plan Date Seen The patient was seen on 07/10/21. Patient Summary Patient with minimal CBI through the night. Catheter still draining dark urine. No irrigation was needed throughout the night. However there still may be a source of bleeding and ordered large amount of clots still in the bladder. Plan/VTE VTE Prophylaxis Ordered?: Yes Plan Will take patient to the operating room for clot evacuation irrigation and caut erization of any bleeding. This benefits were discussed with the patient patient agrees and consent was signed. DELORES LIM MD Jul 10, 2021 09:46
[2021-07-10] MEDS ORDERED: propofoL 200 MG/20 ML VIAL As Ordered ONE ×3 (10:02→10:38)
[2021-07-10] MEDS ORDERED: MIDAZOLAM INJ 2MG/2ML VIAL (J2250 PER 1MG) As Ordered ONE (10:02)
[2021-07-10] MEDS ORDERED: fentaNYL 100 MCG/2 ML INJECTION (J3010) As Ordered ONE (10:02)
[2021-07-10] MEDS ORDERED: LIDOCAINE 2% 100MG/5ML SDV (FOR ANES.) As Ordered ONE ×2 (10:02→10:03)
[2021-07-10] MEDS ORDERED: ONDANSETRON 4MG/2ML VIAL As Ordered ONE (10:35)
--- NOTE | 2021-07-10 10:47 | IPNPDOC ---
Subjective Date Seen The patient was seen on 07/10/21. Subjective Chief Complaint/HPI No complaints this morning. Denies any abdominal pain. Continues to have dark red urine in the catheter but no clots. Going to OR this morning Objective Physical Examination General Exam: Positive: Alert, Cooperative, No Acute Distress Eye Exam: Positive: PERRLA, Conjunctiva & lids normal, EOMI; Negative: Sclera icteric ENT Exam: Positive: Atraumatic, Mucous membr. moist/pink, Pharynx Normal Neck Exam: Positive: Supple; Negative: JVD, thyromegaly Chest Exam: Positive: Clear to auscultation, Normal air movement Heart Exam: Positive: Rate Normal, Regular Rhythm, Normal S1, Normal S2, Murmurs (Systolic murmur heard at the base of the heart as well as in the mitral area); Negative: Rubs Telemetry: Positive: No significant arrhythmia Abdomen Exam: Positive: Normal bowel sounds, Soft, Other (Abdominal bruit heard all over the midline from epigastric to hypogastric region); Negative: Tenderness Extremity Exam: Negative: Clubbing, Cyanosis, Edema Skin Exam: Positive: Nl turgor and temperature; Negative: Breakdown, Lesion Neuro Exam: Positive: Normal Speech, Strength at 5/5 X4 ext, Normal Tone Psych Exam: Positive: Memory Intact, Oriented x 3 Assessment /Plan Assessment Patient 85 years old with past medical history of hdl, NIDDM, glaucoma 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 Hematuria Etiology to be determined CT abdomen and pelvis showed radiodense material in the bladder likely blood clots. Cannot rule out any underlying bladder cancer Has been on CBI for 3 days still continues to have a very dark bloody urine though no clots Going to the OR today with Dr. Payne for cystoscopy and direct visualization. Continue ceftriaxone History of diabetes Now diet controlled A1c 5.7 Hyperlipidemia Continue statin Heart murmur and abdominal aortic bruit We will get an echo Aortic and iliac vascular ultrasound negative for any aortic aneurysm or any flow restriction. Plan/VTE VTE Prophylaxis Ordered?: Yes VS, I&O, 24H, Fishbone Vital Signs/I&O Vital Signs Date Time Temp Pulse Resp B/P (MAP) Pulse Ox O2 Delivery O2 Flow Rate FiO2 07/10/21 09:40 97.9 78 16 130/69 (89) 98 Room Air I&O- Last 24 Hours up to 6 AM 07/10/21 06:00 Intake Total 390 ml Output Total 1925 ml Balance -1535 ml Laboratory Data 24H LABS Laboratory Tests 2 07/10/21 05:51: Immature Granulocyte % (Auto) 0.5, Neutrophils (%) (Auto) 72.9H, Lymphocytes (%) (Auto) 18.0L, Monocytes (%) (Auto) 7.4, Eosinophils (%) (Auto) 0.8, Basophils (%) (Auto) 0.4, Neutrophils # (Auto) 5.8, Lymphocytes # (Auto) 1.4L, Monocytes # (Auto) 0.6, Eosinophils # (Auto) 0.1, Basophils # (Auto) 0.0, Nucleated Red Blood Cells % (auto) 0.0, Anion Gap 4L, Glomerular Filtration Rate > 60.0, Calcium Level 8.6L CBC/BMP Laboratory Tests 07/10/21 05:51 Microbiology Microbiology 07/07/21 Urine Culture - Final, Complete Nicky Garner MD Jul 10, 2021 10:47
[2021-07-10] MEDS ORDERED: ONDANSETRON 4MG/2ML VIAL IV PRN (11:40)
[2021-07-10] MEDS ORDERED: oxyCODONE 5MG TAB PO PRN (11:40)
[2021-07-10] MEDS ORDERED: LR 1,000 ML IV SCH (11:40)
[2021-07-10] MEDS ORDERED: fentaNYL 100 MCG/2 ML INJECTION (J3010) IV PRN (11:40)
--- NOTE | 2021-07-10 12:41 | ROOPDOC ---
[facility] Report Of Operation Report of Operation DATE OF PROCEDURE: 07/10/21 PREPROCEDURE DIAGNOSES: [Clot retention and hematuria]. POSTPROCEDURE DIAGNOSES: [Same]. PROCEDURE PERFORMED: [Cystoscopy with clot evacuation and fulguration of prostatic bleeders]. SURGEON: [Delores Lim], ADMINISTRATOR PESTICIDE: [None], ANESTHESIA: [General]. ESTIMATED BLOOD LOSS: Approximately [< 5] mL. COMPLICATIONS: [None]. REMARKS: . FINDINGS: [Significant clots in the bladder and bleeding prostate] SPECIMENS REMOVED: [Clots were removed and discarded] PROCEDURE NOTE: . DESCRIPTION OF PROCEDURE: [Patient is a 85-year-old gentleman for the last several days have been in the hospital with CBI requiring manual irrigation irr igation intermittently. It was discussed with patient the need for clot evacuation to be formed in the operating room. Risks and benefits were discussed with the patient and the consent form was signed. Patient was brought to the preop holding area and was identified in self and evaluated by anesthesia. Patient was then brought to the cystoscopy suite given general anesthesia. The three-way Butler catheter was removed. prepped and draped in the standard fashion while in dorsal lithotomy position. A timeout was performed. Rigid 22 Micronesian cystoscope was placed through the urethra under direct vision. Patient's patient's anterior urethra was without signs of trauma or bleeding. His posterior urethra had a large clot at the verumontanum which was removed. His prostate was trilobar letter and extremely friable. Upon entering the bladder clots were identified and evacuated using the suction evacuator. Bladder was irrigated initially no bleeding was noted. Then noted that there appeared to be oozing from the bladder neck and or prostatic area. Cystoscope was increased to [address] under direct vision into the bladder. Resectoscope loop was used to fulgurate oozing vessels along the bladder neck and prostatic urethra. There still appeared to be areas that were oozing or friable to touch. The bladder was then filled with fluid resectoscope was removed and a 24 Micronesian two-way catheter was replaced into the bladder and 20 cc were placed in the balloon. The bladder drained white Zinfandel to pink lemonade colored fluid. At the end of the case the catheter was manually irrigated and again no clots were removed and no signs of significant bleeding was noted. Drapes were removed,patient was washed off taken out of the dorsal lithotomy position and transferred to the stretcher. After being awakened from anesthesia he was taken to recovery. DELORES LIM MD Jul 10, 2021 12:41
[2021-07-10] MEDS: SIMVASTATIN 40 MG TAB PO SCH (21:01)
[2021-07-10] MEDS: cefTRIAXone SOD 1 GM in D5W MINI-BAG PLUS 50 ML IV SCH (21:01)
[2021-07-11 06:00] VITALS: BP 100/54
[2021-07-11 06:12] LABS: BASO % 0.4 % (0.0-1.0); EOS # 0.1 10^3/uL (0.0-0.5); EOS % 0.9 % (0.0-3.0); HEMATOCRIT 24.9 % (42.0-52.0); HEMOGLOBIN 8.5 g/dl (13.5-17.5); LYMPH # 1.6 10^3/uL (1.5-5.0); LYMPH % 20.4 % (24.0-44.0); MEAN CORPUSCULAR HEMOGLOBIN 33.6 pg (27.0-33.0); MEAN CORPUSCULAR HGB CONC 34.1 g/dl (32.0-36.5); MEAN CORPUSCULAR VOLUME 98.4 fl (80.0-96.0); MONO # 0.6 10^3/uL (0.0-0.8); MONO % 7.8 % (2.0-8.0); NEUTROPHILS # 5.5 10^3/uL (1.5-8.5); PLATELET COUNT, AUTOMATED 127 10^3/uL (150-450); RED BLOOD COUNT 2.53 10^6/uL (4.30-6.10); WHITE BLOOD COUNT 7.8 10^3/uL (4.0-10.0)
[2021-07-11 06:35] LABS: BLOOD UREA NITROGEN 18 MG/DL (7-18); CALCIUM LEVEL 8.4 MG/DL (8.8-10.2); CARBON DIOXIDE LEVEL 28 MEQ/L (21-32); CHLORIDE LEVEL 108 MEQ/L (98-107); CREATININE FOR GFR 0.64 MG/DL (0.70-1.30); GLOMERULAR FILTRATION RATE > 60.0 (>35); GLUCOSE, FASTING 114 MG/DL (70-100); POTASSIUM SERUM 3.9 MEQ/L (3.5-5.1); SODIUM LEVEL 142 MEQ/L (136-145)
--- NOTE | 2021-07-11 07:27 | IPNPDOC ---
Subjective Review oF Systems Chief Complaint The patient is a 85-year-old male admitted with a reason for visit of Urinary Retention, Uti. Events since Last Encounter Butler Cath drainage clear throughout the night. Objective Physical Examination Heart Exam: Positive: Rate Normal, Regular Rhythm, Normal S1, Normal S2, Murmurs (Systolic murmur heard at the base of the heart as well as in the mitral area); Negative: Rubs ABDOMEN EXAM: Normal bowel sounds, BS Hyperactive, BS Hypoactive, Soft, Hernia; No: Tenderness, Hepatospenomegaly, Mass, Other Vital Signs/I&O Vital Signs Date Time Temp Pulse Resp B/P (MAP) Pulse Ox O2 Delivery O2 Flow Rate FiO2 07/11/21 06:00 98.0 77 16 100/54 (69) 92 Room Air I&O- Last 24 Hours up to 6 AM 07/11/21 06:00 Intake Total 1635 ml Output Total 675 ml Balance 960 ml Laboratory Data Labs 24H Laboratory Tests 2 07/11/21 05:41: Immature Granulocyte % (Auto) 0.5, Neutrophils (%) (Auto) 70.0H, Lymphocytes (%) (Auto) 20.4L, Monocytes (%) (Auto) 7.8, Eosinophils (%) (Auto) 0.9, Basophils (%) (Auto) 0.4, Neutrophils # (Auto) 5.5, Lymphocytes # (Auto) 1.6, Monocytes # (Auto) 0.6, Eosinophils # (Auto) 0.1, Basophils # (Auto) 0.0, Nucleated Red Blood Cells % (auto) 0.0, Anion Gap 6L, Glomerular Filtration Rate > 60.0, Calcium Level 8.4L CBC/BMP Laboratory Tests 07/11/21 05:41 Microbiology Microbiology 07/07/21 Urine Culture - Final, Complete Assessment/Plan Date Seen The patient was seen on 07/11/21. Patient Summary Butler cath drainage clear urine. Patient stable and without complaints. Plan/VTE VTE Prophylaxis Ordered?: Yes Plan Patient clear for discharge from a perspective. When discharge please d/c 1) with Butler cath. 2) leg and gravity bags and teaching 3) Please d/c with prescription for Finasteride 5mg p.o daily. 4) Pt is call clinic to schedule an appt for next week. DELORES LIM MD Jul 11, 2021 07:27
[2021-07-11] MEDS: VITAMIN D 1,000 INTERNATIONAL UNITS TABLET PO SCH (08:04)
[2021-07-11] MEDS: OCUVITE 1 TAB PO SCH (08:04)
[2021-07-11] MEDS: OMEGA-3 1000MG CAPSULE PO SCH (08:04)
[2021-07-11] MEDS: FINASTERIDE 5 MG TAB PO SCH (09:56)
--- NOTE | 2021-07-11 13:27 | ECHO ---
ECHOCARDIOGRAM DATE OF PROCEDURE: 07/10/2021 Age: 85 Gender: Male Height: Weight: REFERRING PROVIDER: Nicky Garner M.D. PATIENT LOCATION: Room 4223. REASON FOR THE TESTING: Heart murmur. MEASUREMENTS: 2D Measurements: IVS 1.0 cm LV 4.8 cm LVPW 1.0 cm LA 4.1 cm Aorta 4.7 cm RV 2.9 cm Ascending aorta 4.3 cm Aortic arch 4.0 cm Doppler Measurements: Peak velocity across the LVOT was reported to be 7.0 m/sec Mitral E 1.4 Mitral A 1.5 with a ratio of 0.95 Maximum tricuspid valve velocity 3.0 m/sec 2D COMMENTS: 1. Normal left ventricular size, wall thickness with a normal global left ventricular systolic function. Estimated left ventricular ejection fraction 65-70%. A sigmoid appearance of the basal ventricular septum was noted. 2. Mildly dilated left atrium. Normal right atrium and right ventricle. 3. The atrial septum appeared to be normal without evidence of defect or shunt. 4. Moderately dilated aortic root and ascending aorta at 4.7 cm and 4.3 cm respectively. The aortic arch also was dilated at 4.0 cm. Mildly calcified mitral annulus with normal anterior mitral valve leaflet motion. Normal tricuspid valve and pulmonic valve. The proximal pulmonary artery branches appeared to be normal. 5. The inferior vena cava was not well visualized. DOPPLER: It detects moderate mitral regurgitation, mild tricuspid regurgitation. The calculated pulmonary artery systolic pressure varies between 40-50 mmHg. Abnormal relaxation pattern was noted across the mitral valve leaflets as well as the mitral valve annulus consistent with features of grade 1 left ventricular diastolic dysfunction. A dagger-shape appearance of the Doppler was noted across the LVOT consistent with hypertrophic cardiomyopathy. IMPRESSION: 1. Normal global left ventricular systolic function with a hyperdynamic left ventricle. There are some features of grade 1 left ventricular diastolic function manifested by abnormal relaxation. 2. 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 This will need to be reassessed in the future. 3. Mitral annulus calcification with moderate mitral regurgitation and a mildly enlarged left atrium. 4. Mild tricuspid regurgitation with moderate pulmonary hypertension. 5. Moderately dilated aortic root and ascending aorta. The aortic arch also was dilated at 4.0 cm.
[2021-07-11] MEDS ORDERED: FINA5TAB2 PO (13:42)
--- NOTE | 2021-07-11 13:57 | IPNPDOC ---
Subjective Date Seen The patient was seen on 07/11/21. Subjective Chief Complaint/HPI Bleeding has almost stopped. Some light pink-colored urine in the catheter. No clots. Status post OR on 07/10/2021 Objective Physical Examination General Exam: Positive: Alert, Cooperative, No Acute Distress Eye Exam: Positive: PERRLA, Conjunctiva & lids normal, EOMI; Negative: Sclera icteric ENT Exam: Positive: Atraumatic, Mucous membr. moist/pink, Pharynx Normal Neck Exam: Positive: Supple; Negative: JVD, thyromegaly Chest Exam: Positive: Clear to auscultation, Normal air movement Heart Exam: Positive: Rate Normal, Regular Rhythm, Normal S1, Normal S2, Murmurs (Systolic murmur heard at the base of the heart as well as in the mitral area); Negative: Rubs Telemetry: Positive: No significant arrhythmia Abdomen Exam: Positive: Normal bowel sounds, Soft, Other (Abdominal bruit heard all over the midline from epigastric to hypogastric region); Negative: Tenderness Extremity Exam: Negative: Clubbing, Cyanosis, Edema Skin Exam: Positive: Nl turgor and temperature; Negative: Breakdown, Lesion Neuro Exam: Positive: Normal Speech, Strength at 5/5 X4 ext, Normal Tone Psych Exam: Positive: Memory Intact, Oriented x 3 Assessment /Plan Assessment Patient 85 years old with past medical history of hdl, NIDDM, glaucoma 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 Hematuria CT abdomen and pelvis showed radiodense material in the bladder likely blood clots. Cannot rule out any underlying bladder cancer Status post cystoscopy with clot evacuation and fulguration of prostatic bleeders Started on finasteride On ceftriaxone History of diabetes Now diet controlled A1c 5.7 Hyperlipidemia Continue statin Hypertrophic cardiomyopathy severe Echo shows;moderate mitral regurgitation, mild tricuspid regurgitation. The calculated pulmonary artery systolic pressure varies between 40-50 mmHg. Abnormal relaxation pattern was noted across the mitral valve leaflets as well as the mitral valve annulus consistent with features of grade 1 left ventricular diastolic dysfunction. A dagger-shape appearance of the Doppler was noted across the LVOT consistent with hypertrophic cardiomyopathy, dilated aortic root, ascending aorta as well as aortic arch. Normal EF Aortic and iliac vascular ultrasound negative for any aortic aneurysm or any flow restriction. Plan/VTE VTE Prophylaxis Ordered?: Yes VS, I&O, 24H, Fishbone Vital Signs/I&O Vital Signs Date Time Temp Pulse Resp B/P (MAP) Pulse Ox O2 Delivery O2 Flow Rate FiO2 07/11/21 06:00 98.0 77 16 100/54 (69) 92 Room Air I&O- Last 24 Hours up to 6 AM 07/11/21 06:00 Intake Total 1635 ml Output Total 675 ml Balance 960 ml Laboratory Data 24H LABS Laboratory Tests 2 07/11/21 05:41: Immature Granulocyte % (Auto) 0.5, Neutrophils (%) (Auto) 70.0H, Lymphocytes (%) (Auto) 20.4L, Monocytes (%) (Auto) 7.8, Eosinophils (%) (Auto) 0.9, Basophils (%) (Auto) 0.4, Neutrophils # (Auto) 5.5, Lymphocytes # (Auto) 1.6, Monocytes # (Auto) 0.6, Eosinophils # (Auto) 0.1, Basophils # (Auto) 0.0, Nucleated Red Blood Cells % (auto) 0.0, Anion Gap 6L, Glomerular Filtration Rate > 60.0, Calcium Level 8.4L CBC/BMP Laboratory Tests 07/11/21 05:41 Microbiology Microbiology 07/07/21 Urine Culture - Final, Complete Nicky Garner MD Jul 11, 2021 13:57
[2021-07-11 14:00] VITALS: BP 117/66
[2021-07-11 21:31] VITALS: BP 115/65
[2021-07-11] MEDS: SIMVASTATIN 40 MG TAB PO SCH (22:18)
[2021-07-11] MEDS: cefTRIAXone SOD 1 GM in D5W MINI-BAG PLUS 50 ML IV SCH (22:19)
[2021-07-12 06:09] VITALS: BP 111/64
[2021-07-12 06:43] LABS: BASO % 0.6 % (0.0-1.0); EOS # 0.1 10^3/uL (0.0-0.5); EOS % 1.5 % (0.0-3.0); HEMATOCRIT 24.4 % (42.0-52.0); HEMOGLOBIN 8.4 g/dl (13.5-17.5); LYMPH # 1.5 10^3/uL (1.5-5.0); LYMPH % 23.4 % (24.0-44.0); MEAN CORPUSCULAR HEMOGLOBIN 33.7 pg (27.0-33.0); MEAN CORPUSCULAR HGB CONC 34.4 g/dl (32.0-36.5); MONO # 0.5 10^3/uL (0.0-0.8); MONO % 7.8 % (2.0-8.0); NEUTROPHILS # 4.4 10^3/uL (1.5-8.5); NEUTROPHILS % 66.2 % (36.0-66.0); PLATELET COUNT, AUTOMATED 124 10^3/uL (150-450); RED BLOOD COUNT 2.49 10^6/uL (4.30-6.10); WHITE BLOOD COUNT 6.6 10^3/uL (4.0-10.0)
[2021-07-12 07:07] LABS: BLOOD UREA NITROGEN 18 MG/DL (7-18); CALCIUM LEVEL 8.6 MG/DL (8.8-10.2); CARBON DIOXIDE LEVEL 29 MEQ/L (21-32); CHLORIDE LEVEL 109 MEQ/L (98-107); CREATININE FOR GFR 0.64 MG/DL (0.70-1.30); GLOMERULAR FILTRATION RATE > 60.0 (>35); GLUCOSE, FASTING 124 MG/DL (70-100); POTASSIUM SERUM 3.6 MEQ/L (3.5-5.1); SODIUM LEVEL 143 MEQ/L (136-145)
[2021-07-12] MEDS: OMEGA-3 1000MG CAPSULE PO SCH (09:39)
[2021-07-12] MEDS: VITAMIN D 1,000 INTERNATIONAL UNITS TABLET PO SCH (09:39)
[2021-07-12] MEDS: FINASTERIDE 5 MG TAB PO SCH (09:39)
[2021-07-12] MEDS: OCUVITE 1 TAB PO SCH (09:39)
--- NOTE | 2021-07-12 14:09 | DS.PDOC ---
Discharge Summary General Date of Admission Jul 07, 2021 at 20:19 Date of Discharge 07/12/2021 Discharge Summary PROCEDURES PERFORMED DURING STAY: Cystoscopy with clot evacuation and fulguration of prostatic bleeders DISCHARGE DIAGNOSES: Hematuria from prostatic bleeders. Severe hypertrophic cardiomyopathy with dilated aortic root ascending aorta and aortic arch, grade 1 diastolic dysfunction. 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 Hematuria CT abdomen and pelvis showed radiodense material in the bladder likely blood clots. Cannot rule out any underlying bladder cancer Status post cystoscopy with clot evacuation and fulguration of prostatic bleeders Started on finasteride Urine cultures negative. Antibiotics stopped History of diabetes Now diet controlled A1c 5.7 Hyperlipidemia Continue statin Hypertrophic cardiomyopathy severe Echo shows;moderate mitral regurgitation, mild tricuspid regurgitation. The calculated pulmonary artery systolic pressure varies between 40-50 mmHg. Ab normal relaxation pattern was noted across the mitral valve leaflets as well as the mitral valve annulus consistent with features of grade 1 left ventricular diastolic dysfunction. A dagger-shape appearance of the Doppler was noted across the LVOT consistent with hypertrophic cardiomyopathy, dilated aortic root, ascending aorta as well as aortic arch. Normal EF Aortic and iliac vascular ultrasound negative for any aortic aneurysm or any flow restriction. DISCHARGE MEDICATIONS: Please see below. ALLERGIES: Please see below. PHYSICAL EXAMINATION ON DISCHARGE: VITAL SIGNS: Please see below. General Exam: Positive: Alert, Cooperative, No Acute Distress Eye Exam: Positive: PERRLA, Conjunctiva & lids normal, EOMI; Negative: Sclera icteric ENT Exam: Positive: Atraumatic, Mucous membr. moist/pink, Pharynx Normal Neck Exam: Positive: Supple; Negative: JVD, thyromegaly Chest Exam: Positive: Clear to auscultation, Normal air movement Heart Exam: Positive: Rate Normal, Regular Rhythm, Normal S1, Normal S2, Murmurs (Systolic murmur heard at the base of the heart as well as in the mitral area); Negative: Rubs Telemetry: Positive: No significant arrhythmia Abdomen Exam: Positive: Normal bowel sounds, Soft, Other (Abdominal bruit heard all over the midline from epigastric to hypogastric region); Negative: Tenderness Extremity Exam: Negative: Clubbing, Cyanosis, Edema Skin Exam: Positive: Nl turgor and temperature; Negative: Breakdown, Lesion Neuro Exam: Positive: Normal Speech, Strength at 5/5 X4 ext, Normal Tone Psych Exam: Positive: Memory Intact, Oriented x 3 LABORATORY DATA: Please see below. IMAGING: ACTIVITY: [As tolerated]. DIET: As tolerated DISCHARGE PLAN: Home DISCHARGE INSTRUCTIONS: Follow-up with urology in 1 week PMD in 2 weeks Needs referral to cardiology for hypertrophic cardiomyopathy DISCHARGE CONDITION: [Stable]. TIME SPENT ON DISCHARGE: 35 minutes. Vital Signs/I&Os Vital Signs Date Time Temp Pulse Resp B/P (MAP) Pulse Ox O2 Delivery O2 Flow Rate FiO2 07/12/21 06:09 97.4 70 20 111/64 (80) 97 Room Air I&O- Last 24 Hours up to 6 AM 07/12/21 06:00 Intake Total 730 ml Output Total 1175 ml Balance -445 ml Laboratory Data Labs 24H Laboratory Tests 2 07/12/21 06:31: Immature Granulocyte % (Auto) 0.5, Neutrophils (%) (Auto) 66.2H, Lymphocytes (%) (Auto) 23.4L, Monocytes (%) (Auto) 7.8, Eosinophils (%) (Auto) 1.5, Basophils (%) (Auto) 0.6, Neutrophils # (Auto) 4.4, Lymphocytes # (Auto) 1.5, Monocytes # (Auto) 0.5, Eosinophils # (Auto) 0.1, Basophils # (Auto) 0.0, Nucleated Red B lood Cells % (auto) 0.0, Anion Gap 5L, Glomerular Filtration Rate > 60.0, Calcium Level 8.6L CBC/BMP Laboratory Tests 07/12/21 06:31 Microbiology Microbiology 07/07/21 Urine Culture - Final, Complete Discharge Medications Scheduled Antiox.mv No.10/Omeg3s/Lut/Kayli (I-Caps with Lutein-Jber 3 Sfg) 1 Each Capsule, 1 CAP PO DAILY, (Reported) Cholecalciferol (Vitamin D3) (Vitamin D3) 25 Mcg Capsule, 25 MCG PO DAILY, (Reported) Finasteride (Finasteride) 5 Mg Tablet, 5 MG PO DAILY Simvastatin (Simvastatin) 40 Mg Tablet, 40 MG PO QHS, (Reported) Allergies Coded Allergies: No Known Allergies (Unverified , 04/21/20) Nicky Garner MD Jul 12, 2021 14:09
--- NOTE | 2021-07-12 18:33 | IPNPDOC ---
Subjective Review oF Systems Chief Complaint The patient is a 85-year-old male admitted with a reason for visit of Urinary Retention, Uti. Events since Last Encounter No acute events o/n. Patient denies pain. Objective Physical Examination General Exam: Alert, Cooperative, No Acute Distress ABDOMEN EXAM: Soft, Mass; No: Tenderness Skin Exam: Nl turgor and temperature Neuro Exam: Normal Speech Psych Exam: Mental status NL, Mood NL Other physical findings catheter in place, draining eri colored urine Vital Signs/I&O Vital Signs Date Time Temp Pulse Resp B/P (MAP) Pulse Ox O2 Delivery O2 Flow Rate FiO2 07/12/21 06:09 97.4 70 20 111/64 (80) 97 Room Air I&O- Last 24 Hours up to 6 AM 07/12/21 06:00 Intake Total 730 ml Output Total 1175 ml Balance -445 ml Laboratory Data Labs 24H Laboratory Tests 2 07/12/21 06:31: Immature Granulocyte % (Auto) 0.5, Neutrophils (%) (Auto) 66.2H, Lymphocytes (%) (Auto) 23.4L, Monocytes (%) (Auto) 7.8, Eosinophils (%) (Auto) 1.5, Basophils (%) (Auto) 0.6, Neutrophils # (Auto) 4.4, Lymphocytes # (Auto) 1.5, Monocytes # (Auto) 0.5, Eosinophils # (Auto) 0.1, Basophils # (Auto) 0.0, Nucleated Red Blood Cells % (auto) 0.0, Anion Gap 5L, Glomerular Filtration Rate > 60.0, Calcium Level 8.6L CBC/BMP Laboratory Tests 07/12/21 06:31 Microbiology Microbiology 07/07/21 Urine Culture - Final, Complete Assessment/Plan Date Seen The patient was seen on 07/12/21. 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 His urine is clear now. He normally does [facility]. I explained that once he goes back to [facility], he will likely have problems w/ hematuria again at some point down the line given the very vascular prostate seen on cysto. I recommended that we leave an indwelling catheter for now and set him up for a repeat TURP (last done approximately 5 yrs ago in [place]). I explained that this would not be to help him void, but rather to help decrease the risk of recurrent hematuria. He noted understanding. Plan/VTE VTE Prophylaxis Ordered?: Yes VTE Exclusion Mechanical Proph: N/A:VTE Prophy Ordered Plan - ok for discharge w/ Butler catheter - will arrange f/u in the urology office to discuss a cysto w/ button TURP - continue JAYLEEN Owen MD Jul 12, 2021 18:32
== END 2021-07-12 14:10 | disposition home health service (06) | DRG 717 ==
LOC: M ED 12:34 → M ED INP 20:19 → M MSPAV 22:20
PROVIDERS: ADMIT Family Medicine; ATTEND Internal Medicine Nephrology
PROC: 0TCB8ZZ Extirpation of Matter from Bladder, Via Natural or Artificial Opening Endoscopic (ICD-10-PCS; 2021-07-10)
PROC: 0W3R8ZZ Control Bleeding in Genitourinary Tract, Via Natural or Artificial Opening Endoscopic (ICD-10-PCS; principal; 2021-07-10 09:31)
DX: N42.1 Congestion and hemorrhage of prostate (principal); I42.2 Other hypertrophic cardiomyopathy; E11.9 Type 2 diabetes mellitus without complications; H40.9 Unspecified glaucoma; R33.9 Retention of urine, unspecified; Z79.899 Other long term (current) drug therapy; Z20.822 Contact with and (suspected) exposure to COVID-19; F17.290 Nicotine dependence, other tobacco product, uncomplicated; D72.829 Elevated white blood cell count, unspecified; E78.5 Hyperlipidemia, unspecified

== ENCOUNTER → 2021-08-12 | Outpatient (REF) | payer MEDICARE, BC ==
[~2021-08-12] MED LIST changes: +BACTDSTA PO; +D 1010004 PO; +FINA5TAB2 PO; +ICAPCAP3 PO; +IRON65TA2 PO; +OMEG10002 PO
[2021-08-12 15:49] LABS: APPEARANCE, URINE HAZY (CLEAR); BACTERIA, URINE AUTO 1+ (NEGATIVE); BILIRUBIN, URINE AUTO NEGATIVE (NEGATIVE); BLOOD, URINE BLOOD 3+ (NEGATIVE); COLOR, URINE YELLOW (YELLOW); GLUCOSE, URINE (UA) AUTO NEGATIVE (NEGATIVE); KETONE, URINE AUTO NEGATIVE (NEGATIVE); LEUKOCYTE ESTERASE, URINE AUTO 3+ (NEGATIVE); NITRITE, URINE AUTO NEGATIVE (NEGATIVE); PROTEIN, URINE AUTO 1+ mg/dL (NEGATIVE); RBC, URINE AUTO 0 /HPF (0-3); SPECIFIC GRAVITY URINE AUTO 1.002 (1.002-1.035); SQUAMOUS EPITHELIAL CELL UR AU 1 /HPF (0-6); UROBILINOGEN, URINE AUTO 0.2 mg/dL (0.0-2.0); WBC, URINE AUTO 67 /HPF (0-3)
== END ==
LOC: M SMT 13:00
PROVIDERS: ATTEND Urology
DX: N39.0 Urinary tract infection, site not specified (principal)

== ENCOUNTER → 2021-08-16 | Outpatient (CLI) | payer MEDICARE, BC ==
[~2021-08-16] MED LIST changes: -BACTDSTA PO; -IRON65TA2 PO
== END ==
LOC: M LABSMTC 09:27
PROVIDERS: ATTEND Anesthesiology
DX: Z01.812 Encounter for preprocedural laboratory examination (principal); Z20.822 Contact with and (suspected) exposure to COVID-19

== ENCOUNTER 2021-08-20 09:29 | Day surgery (SDC) | payer MEDICARE, BC ==
[~2021-08-20] VITALS: Ht 177.8 cm; Wt 79.1 kg
[~2021-08-20 09:29] MED LIST changes: +LIDOCAINE 2% 100MG/5ML SDV (FOR ANES.) As Ordered ONE; +LR 1,000 ML IV ONE; +ONDANSETRON 4MG/2ML VIAL As Ordered ONE; +ceFAZolin SOD 2 GM in IV 1 EA IV ONE; +dexameTHASONE 4 MG/ML 1ML VIAL (J1100 PER 1MG) As Ordered ONE; +propofoL 200 MG/20 ML VIAL As Ordered ONE
[2021-08-20] MEDS ORDERED: BACTDSTA PO (10:01)
[2021-08-20] MEDS ORDERED: IRON65TA2 PO (10:01)
[2021-08-20] MEDS ORDERED: ACETAMINOPHEN 1000MG 100ML IV BTL (OFIRMEV) (J0131 PER 10MG) As Ordered ONE (10:49)
[2021-08-20] MEDS ORDERED: fentaNYL 100 MCG/2 ML INJECTION (J3010) As Ordered ONE (11:12)
[2021-08-20] MEDS ORDERED: FUROSEMIDE 100MG/10ML VIAL (J1940) As Ordered ONE (13:35)
[2021-08-20] MEDS ORDERED: ONDANSETRON 4MG/2ML VIAL IV PRN (14:30)
[2021-08-20] MEDS ORDERED: fentaNYL 100 MCG/2 ML INJECTION (J3010) IV PRN (14:30)
[2021-08-20] MEDS ORDERED: LR 1,000 ML IV SCH (14:30)
[2021-08-20] MEDS ORDERED: METOCLOPRAMIDE INJ 10MG/2ML VIAL (J2765 PER 1) IV PRN (14:30)
[2021-08-20] MEDS ORDERED: ACETAMINOPHEN TAB 650MG DOSE (2X325MG) PO PRN ×2 (14:40→15:05)
[2021-08-20 15:39] VITALS: BP 125/59
--- NOTE | 2021-08-21 08:37 | RO ---
OPERATIVE NOTE DATE OF OPERATION: 08/20/2021 PREOPERATIVE DIAGNOSIS: Benign prostatic hyperplasia with urinary retention and gross hematuria. POSTOPERATIVE DIAGNOSIS: Benign prostatic hyperplasia with urinary retention and gross hematuria. PROCEDURE: Cystoscopy, button transurethral electrovaporization of the prostate. SURGEON: Joshua Faust MD REPAIRER CYLINDER HEADS: None. ANESTHESIA: General. OPERATIVE INDICATIONS: This is an 85-year-old male with benign prostatic hyperplasia and urinary retention who has also had recurrent episodes of gross hematuria. He is brought to the operating room today for treatment. DESCRIPTION OF PROCEDURE: The patient was brought to the operating room and general anesthesia was induced. Prophylactic antibiotics were infused. He was placed in the dorsal lithotomy position and prepped and draped in usual sterile fashion. A resectoscope was inserted in the urethral meatus and advanced into the bladder. Of note, the patient had bilobar benign prostatic hyperplasia with very vascular lateral lobes. I made note of the location of the ureteral orifices as well as verumontanum. At this point I began vaporizing hyperplastic tissue circumferentially at the bladder neck and then on both lobes of disease. I kept doing this until there was a clear channel established. Throughout the procedure I made sure not to vaporize close to the ureteral orifices or distal to the verumontanum. Once satisfied there was a clear channel hemostasis was obtained using the coagulation current. Once satisfied with hemostasis the resectoscope was removed and an 18-[place] Butler catheter was inserted into the bladder. The balloon was filled with 15 mL of sterile water and then the catheter was connected to gravity drainage. This marked the conclusion of the procedure. The patient was then taken out of the dorsal lithotomy position, awakened from anesthesia and transported to recovery room in stable condition. ESTIMATED BLOOD LOSS: 25 mL. COMPLICATIONS: None. SPECIMEN: None. PLAN: The patient will follow up in urology clinic in approximately one week. At that point will do a voiding trial and see if he can empty on his own. ISAEL
== END 2021-08-20 15:40 | disposition home or self-care (01) ==
LOC: M SDC 09:29
PROVIDERS: ATTEND Urology
DX: N40.1 Benign prostatic hyperplasia with lower urinary tract symptoms (principal); R31.0 Gross hematuria; E11.9 Type 2 diabetes mellitus without complications; E78.2 Mixed hyperlipidemia; I65.23 Occlusion and stenosis of bilateral carotid arteries; E55.9 Vitamin D deficiency, unspecified; D64.9 Anemia, unspecified; F17.210 Nicotine dependence, cigarettes, uncomplicated; Z79.899 Other long term (current) drug therapy
CPT/HCPCS: 52601; J0131; J0690; J1100; J1940; J2405; J3010

== ENCOUNTER 2024-04-25 09:56 | Day surgery (SDC) | payer MEDICARE ==
[~2024-04-25] VITALS: Ht 177.8 cm; Wt 80.3 kg
[~2024-04-25 09:56] MED LIST changes: +BACTDSTA PO; +BIMA01SOL; +BRIM5DRO4; +CEFUROXIME 1MG/0.1ML INTRACAMERAL INJ As Ordered ONE; +IRON65TA2 PO; -LIDOCAINE 2% 100MG/5ML SDV (FOR ANES.) As Ordered ONE; -LR 1,000 ML IV ONE; -ONDANSETRON 4MG/2ML VIAL As Ordered ONE; +PHENYLEPHRINE 10% OPHTH SOL 5ML OS PRN; -ceFAZolin SOD 2 GM in IV 1 EA IV ONE; -dexameTHASONE 4 MG/ML 1ML VIAL (J1100 PER 1MG) As Ordered ONE; -propofoL 200 MG/20 ML VIAL As Ordered ONE
[2024-04-25] MEDS: OFLOXACIN 0.3 % (OCUFLOX) OPTH SOL 5ML OS ONE (10:50)
[2024-04-25] MEDS: TROPICAMIDE 1% OPHTH SOLN 15ML OS SCH (10:55)
[2024-04-25] MEDS: LIDOCAINE 3.5 % 1ML OPHTH TOPICAL GEL OU ONE (10:55)
[2024-04-25] MEDS: PHENYLEPHRINE 2.5% OPHTH SOL 2ML OS SCH (10:55)
[2024-04-25] MEDS: ATROPINE SULFATE 1% OPHTH SOLN 2ML BTL OS SCH (10:55)
[2024-04-25] MEDS ORDERED: MIDAZOLAM INJ 2MG/2ML VIAL As Ordered ONE (11:23)
[2024-04-25] MEDS ORDERED: fentaNYL 100 MCG/2 ML INJECTION As Ordered ONE (11:23)
[2024-04-25] MEDS: BSS IRRIG/VANCO(10MG)/TOBRA(5MG)/EPINEPH(1:1000-0.5CC)500ML BAG-ORONLY As Ordered ONE (11:45)
[2024-04-25] MEDS: LIDOCAINE 1% SDV 5ML VIAL As Ordered ONE (11:45)
[2024-04-25] MEDS: DUOVISC (0.50ML VISCOAT/0.85ML PROVISC) OPHTH KIT As Ordered ONE (11:45)
[2024-04-25 12:06] VITALS: BP 109/70; TEMP 97.6; O2SAT 96
== END 2024-04-25 12:30 | disposition home or self-care (01) ==
LOC: M SDC 09:56
PROVIDERS: ATTEND Ophthalmology
DX: H25.12 Age-related nuclear cataract, left eye (principal); H40.1112 Primary open-angle glaucoma, right eye, moderate stage; Z79.899 Other long term (current) drug therapy; Z72.0 Tobacco use
CPT/HCPCS: 66991; C1783; J0697; J2250; J3010; V2632

== ENCOUNTER 2024-05-02 10:16 | Day surgery (SDC) | payer MEDICARE ==
[~2024-05-02] VITALS: Ht 177.8 cm; Wt 80.3 kg
[~2024-05-02 10:16] MED LIST changes: +ATROPINE SULFATE 1% OPHTH SOLN 2ML BTL OD SCH; -BIMA01SOL; +BIMA01SOL OU; -BRIM5DRO4; +BRIM5DRO4 OU; -CEFUROXIME 1MG/0.1ML INTRACAMERAL INJ As Ordered ONE; +MIDAZOLAM INJ 2MG/2ML VIAL As Ordered ONE; -PHENYLEPHRINE 10% OPHTH SOL 5ML OS PRN; +fentaNYL 100 MCG/2 ML INJECTION As Ordered ONE
[2024-05-02] MEDS: OFLOXACIN 0.3 % (OCUFLOX) OPTH SOL 5ML OD ONE (10:48)
[2024-05-02] MEDS: PHENYLEPHRINE 10% OPHTH SOL 5ML OD PRN (10:48)
[2024-05-02] MEDS: PHENYLEPHRINE 2.5% OPHTH SOL 2ML OD SCH (10:49)
[2024-05-02] MEDS: TROPICAMIDE 1% OPHTH SOLN 15ML OD SCH (10:49)
[2024-05-02] MEDS: LIDOCAINE 3.5 % 1ML OPHTH TOPICAL GEL OU ONE (10:49)
[2024-05-02] MEDS: BSS IRRIG/VANCO(10MG)/TOBRA(5MG)/EPINEPH(1:1000-0.5CC)500ML BAG-ORONLY As Ordered ONE (11:19)
[2024-05-02] MEDS: CEFUROXIME 1MG/0.1ML INTRACAMERAL INJ As Ordered ONE (11:19)
[2024-05-02] MEDS: LIDOCAINE 1% SDV 5ML VIAL As Ordered ONE (11:19)
[2024-05-02 11:28] VITALS: BP 143/86; TEMP 98; O2SAT 97
== END 2024-05-02 11:58 | disposition home or self-care (01) ==
LOC: M SDC 10:16
PROVIDERS: ATTEND Ophthalmology
DX: H25.11 Age-related nuclear cataract, right eye (principal); Z79.899 Other long term (current) drug therapy; Z90.79 Acquired absence of other genital organ(s); Z72.0 Tobacco use
CPT/HCPCS: 66984; J0697; J2250; J3010; V2632

== ENCOUNTER 2024-05-07 10:13 | Inpatient (IN) | payer MEDICARE, BC ==
[~2024-05-07] VITALS: Ht 177.8 cm; Wt 76.2 kg
[~2024-05-07 10:13] MED LIST changes: -ATROPINE SULFATE 1% OPHTH SOLN 2ML BTL OD SCH; -MIDAZOLAM INJ 2MG/2ML VIAL As Ordered ONE; -fentaNYL 100 MCG/2 ML INJECTION As Ordered ONE
[2024-05-07] MEDS ORDERED: PREDOPD OS (10:35)
[2024-05-07] MEDS ORDERED: ROSU5TAB40 PO (10:35)
[2024-05-07 11:39] LABS: BASO % 0.2 % (0.0-1.0); EOS % 0.1 % (0.0-3.0); HEMATOCRIT 33.3 % (42.0-52.0); HEMOGLOBIN 11.9 g/dl (13.5-17.5); LYMPH # 0.8 10^3/uL (1.5-5.0); LYMPH % 7.6 % (24.0-44.0); MEAN CORPUSCULAR HGB CONC 35.7 g/dl (32.0-36.5); MEAN CORPUSCULAR VOLUME 95.1 fl (80.0-96.0); MONO # 0.6 10^3/uL (0.0-0.8); NEUTROPHILS # 9.2 10^3/uL (1.5-8.5); NEUTROPHILS % 85.7 % (36.0-66.0); PLATELET COUNT, AUTOMATED 173 10^3/uL (150-450); WHITE BLOOD COUNT 10.7 10^3/uL (4.0-10.0)
[2024-05-07] MEDS ORDERED: ISOVUE-370 76% 100ML VIAL As Ordered ONE (11:39)
[2024-05-07] MEDS: LIDOCAINE 2% 5ML JELLY UROJET TOP ONE (13:30)
[2024-05-07] MEDS ORDERED: MIRALAX *UNIT DOSE* 17GM PACKET PO PRN (15:55)
[2024-05-07] MEDS ORDERED: SENOKOT S TAB PO PRN (15:55)
[2024-05-07] MEDS ORDERED: KETO0.5S4 OD (16:30)
[2024-05-07] MEDS ORDERED: CIPR0.3S37 OD (16:30)
[2024-05-07] MEDS ORDERED: HOME MED LIST COMPLETE! XX SCH (16:35)
[2024-05-07] MEDS ORDERED: PILL CUTTER 1 EACH XX PRN (16:40)
[2024-05-07] MEDS: ACETAMINOPHEN TAB 650MG DOSE (2X325MG) PO PRN (16:42)
[2024-05-07 18:08] LABS: HEMATOCRIT 31.8 % (42.0-52.0); HEMOGLOBIN 11.2 g/dl (13.5-17.5)
[2024-05-07 18:30] VITALS: BP 137/78; TEMP 97.7; O2SAT 98
[2024-05-07 20:06] VITALS: BP 109/67; TEMP 97.5; O2SAT 99
[2024-05-07] MEDS: ROSUVASTATIN 10 MG TAB (CRESTOR) PO SCH (20:28)
[2024-05-07] MEDS: prednisoLONE ACET 1% OPHTH SUSP 5ML OS SCH (20:28)
[2024-05-07] MEDS ORDERED: OPTH OU SCH (21:00)
[2024-05-07] MEDS ORDERED: LUMIGAN 0.01% OU SCH (21:00)
[2024-05-07] MEDS ORDERED: OPTHALMIC OU SCH (21:00)
[2024-05-07] MEDS ORDERED: BRIMONIDINE OU SCH (21:00)
[2024-05-07] MEDS ORDERED: TIMOLOL OU SCH (21:00)
[2024-05-07] MEDS ORDERED: KETOROLAC 0.5% OD SCH (21:00)
[2024-05-07] MEDS ORDERED: OPTHALMIC OD SCH (21:00)
[2024-05-07] MEDS: LATANOPROST 0.005% OPHTH SOLN 2.5 ML OU SCH (22:33)
[2024-05-07] MEDS: CIPROFLOXACIN 0.3% OPHTH SOLN 2.5ML OD SCH (22:34)
[2024-05-07] MEDS: KETOROLAC 0.5% OPHTH SOLN OD SCH (22:34)
[2024-05-08] VITALS (10 sets, daily range): BP systolic 125–149; BP diastolic 65–78; TEMP 97.3–98.2; O2SAT 94–97
[2024-05-08] MEDS: UNRESOLVED PATIENT OWN MED ORDER XX SCH (00:01)
[2024-05-08 00:36] LABS: HEMATOCRIT 30.8 % (42.0-52.0); HEMOGLOBIN 10.7 g/dl (13.5-17.5)
[2024-05-08 06:03] LABS: HEMATOCRIT 31.8 % (42.0-52.0); HEMOGLOBIN 11.3 g/dl (13.5-17.5); MEAN CORPUSCULAR HEMOGLOBIN 33.7 pg (27.0-33.0); MEAN CORPUSCULAR HGB CONC 35.5 g/dl (32.0-36.5); MEAN CORPUSCULAR VOLUME 94.9 fl (80.0-96.0); PLATELET COUNT, AUTOMATED 199 10^3/uL (150-450); RED BLOOD COUNT 3.35 10^6/uL (4.30-6.10)
[2024-05-08 06:30] LABS: BLOOD UREA NITROGEN 27 MG/DL (9-23); CALCIUM LEVEL 9.6 MG/DL (8.3-10.6); CARBON DIOXIDE LEVEL 24 MMOL/L (20-31); CHLORIDE LEVEL 108 MMOL/L (98-107); CREATININE FOR GFR 0.97 MG/DL (0.70-1.30); GLOMERULAR FILTRATION RATE > 60.0 (>35); GLUCOSE, FASTING 200 MG/DL (74-106); POTASSIUM SERUM 4.2 MMOL/L (3.5-5.1); SODIUM LEVEL 139 MMOL/L (136-145)
[2024-05-08] MEDS ORDERED: LIDOCAINE 2% 100MG/5ML SDV (FOR ANES.) As Ordered ONE (11:51)
[2024-05-08] MEDS ORDERED: propofoL 200 MG/20 ML VIAL As Ordered ONE (11:51)
[2024-05-08] MEDS ORDERED: ROCURONIUM BROMIDE 50MG/5ML VIAL As Ordered ONE (11:51)
[2024-05-08] MEDS ORDERED: MIDAZOLAM INJ 2MG/2ML VIAL As Ordered ONE (11:51)
[2024-05-08] MEDS ORDERED: fentaNYL 100 MCG/2 ML INJECTION As Ordered ONE (11:52)
[2024-05-08] MEDS: ceFAZolin 2 GM/D5W 50 ML IV BAG As Ordered ONE (12:09)
[2024-05-08] MEDS ORDERED: PHENYLephrine 500MCG 5ML (100MCG/ML) SYRINGE As Ordered ONE (12:13)
[2024-05-08] MEDS ORDERED: SUGAMMADEX SODIUM 500 MG/5 ML VIAL (BRIDION) As Ordered ONE (12:41)
[2024-05-08] MEDS: FERROUS SULFATE 325MG TAB PO SCH (14:07)
[2024-05-08] MEDS: OMEGA-3 1000MG CAPSULE PO SCH (14:07)
[2024-05-08] MEDS: ASCORBIC ACID 500 MG TAB PO SCH (14:07)
[2024-05-09 04:26] VITALS: BP 122/69; TEMP 97.5; O2SAT 92
[2024-05-09 07:07] LABS: HEMATOCRIT 27.7 % (42.0-52.0); HEMOGLOBIN 9.6 g/dl (13.5-17.5); MEAN CORPUSCULAR HEMOGLOBIN 33.8 pg (27.0-33.0); MEAN CORPUSCULAR HGB CONC 34.7 g/dl (32.0-36.5); MEAN CORPUSCULAR VOLUME 97.5 fl (80.0-96.0); PLATELET COUNT, AUTOMATED 156 10^3/uL (150-450); RED BLOOD COUNT 2.84 10^6/uL (4.30-6.10); WHITE BLOOD COUNT 10.1 10^3/uL (4.0-10.0)
[2024-05-09 07:48] LABS: BLOOD UREA NITROGEN 26 MG/DL (9-23); CALCIUM LEVEL 8.7 MG/DL (8.3-10.6); CARBON DIOXIDE LEVEL 30 MMOL/L (20-31); CHLORIDE LEVEL 110 MMOL/L (98-107); CREATININE FOR GFR 0.77 MG/DL (0.70-1.30); GLOMERULAR FILTRATION RATE > 60.0 (>35); GLUCOSE, FASTING 140 MG/DL (74-106); POTASSIUM SERUM 3.9 MMOL/L (3.5-5.1); SODIUM LEVEL 142 MMOL/L (136-145)
[2024-05-09 08:00] VITALS: BP 121/69; TEMP 98.1; O2SAT 94
[2024-05-09 12:00] VITALS: BP 130/75; TEMP 98.2; O2SAT 94
[2024-05-09 19:30] VITALS: BP 113/76; TEMP 97.5; O2SAT 95
[2024-05-10] VITALS (11 sets, daily range): BP systolic 98–122; BP diastolic 55–86; TEMP 97.2–98.6; O2SAT 93–97
[2024-05-10 06:14] LABS: HEMATOCRIT 25.3 % (42.0-52.0); MEAN CORPUSCULAR HEMOGLOBIN 34.5 pg (27.0-33.0); MEAN CORPUSCULAR HGB CONC 35.6 g/dl (32.0-36.5); MEAN CORPUSCULAR VOLUME 96.9 fl (80.0-96.0); PLATELET COUNT, AUTOMATED 160 10^3/uL (150-450); RED BLOOD COUNT 2.61 10^6/uL (4.30-6.10); WHITE BLOOD COUNT 9.9 10^3/uL (4.0-10.0)
[2024-05-10 06:29] LABS: BLOOD UREA NITROGEN 21 MG/DL (9-23); CALCIUM LEVEL 8.6 MG/DL (8.3-10.6); CARBON DIOXIDE LEVEL 30 MMOL/L (20-31); CHLORIDE LEVEL 108 MMOL/L (98-107); GLOMERULAR FILTRATION RATE > 60.0 (>35); GLUCOSE, FASTING 159 MG/DL (74-106); POTASSIUM SERUM 3.8 MMOL/L (3.5-5.1); SODIUM LEVEL 140 MMOL/L (136-145)
[2024-05-10] MEDS ORDERED: ASCORBIC ACID 500 MG TAB PO SCH (09:00)
[2024-05-10] MEDS ORDERED: FERROUS SULFATE 325MG TAB PO SCH (09:00)
[2024-05-10] MEDS: BRIMONIDINE 0.15% OPHTH SOLN 5 ML OU SCH (09:35)
[2024-05-10] MEDS: TIMOLOL MALEATE 0.5% OPHTH SOLN 5 ML OU SCH (09:36)
[2024-05-10] MEDS: NS 500 ML IV ONE (11:10)
[2024-05-10] MEDS ORDERED: PREDOPD OD (16:11)
[2024-05-10] MEDS ORDERED: HOME MED LIST COMPLETE! XX SCH (16:15)
[2024-05-10 17:13] LABS: HEMATOCRIT 26.1 % (42.0-52.0); HEMOGLOBIN 9.1 g/dl (13.5-17.5)
[2024-05-10] MEDS: prednisoLONE ACET 1% OPHTH SUSP 5ML OU SCH (20:27)
[2024-05-11] VITALS (12 sets, daily range): BP systolic 102–122; BP diastolic 54–67; TEMP 97–98.1; O2SAT 94–100
[2024-05-11 00:28] LABS: HEMATOCRIT 23.4 % (42.0-52.0); HEMOGLOBIN 8.4 g/dl (13.5-17.5)
[2024-05-11 06:20] LABS: HEMATOCRIT 25.3 % (42.0-52.0); HEMOGLOBIN 8.8 g/dl (13.5-17.5); MEAN CORPUSCULAR HGB CONC 34.8 g/dl (32.0-36.5); MEAN CORPUSCULAR VOLUME 94.8 fl (80.0-96.0); PLATELET COUNT, AUTOMATED 154 10^3/uL (150-450); RED BLOOD COUNT 2.67 10^6/uL (4.30-6.10); WHITE BLOOD COUNT 10.5 10^3/uL (4.0-10.0)
[2024-05-11 06:50] LABS: BLOOD UREA NITROGEN 26 MG/DL (9-23); CALCIUM LEVEL 8.4 MG/DL (8.3-10.6); CARBON DIOXIDE LEVEL 26 MMOL/L (20-31); CHLORIDE LEVEL 106 MMOL/L (98-107); CREATININE FOR GFR 0.77 MG/DL (0.70-1.30); GLOMERULAR FILTRATION RATE > 60.0 (>35); GLUCOSE, FASTING 162 MG/DL (74-106); POTASSIUM SERUM 3.8 MMOL/L (3.5-5.1); SODIUM LEVEL 138 MMOL/L (136-145)
[2024-05-11 08:29] LABS: FREE T4 0.94 NG/DL (0.89-1.76); THYROID STIMULATING HORMONE 7.163 uIU/ML (0.55-4.78)
[2024-05-11 08:32] LABS: FREE T3 2.5 PG/ML (2.3-4.2)
[2024-05-11 18:25] LABS: HEMATOCRIT 29.8 % (42.0-52.0); HEMOGLOBIN 10.3 g/dl (13.5-17.5)
[2024-05-12] VITALS (9 sets, daily range): BP systolic 91–140; BP diastolic 57–67; TEMP 96.5–97.3; O2SAT 94–100
[2024-05-12 00:42] LABS: HEMATOCRIT 27.6 % (42.0-52.0); HEMOGLOBIN 9.7 g/dl (13.5-17.5)
[2024-05-12 03:53] LABS: HEMATOCRIT 28.9 % (42.0-52.0); HEMOGLOBIN 10.1 g/dl (13.5-17.5); MEAN CORPUSCULAR HEMOGLOBIN 32.6 pg (27.0-33.0); MEAN CORPUSCULAR HGB CONC 34.9 g/dl (32.0-36.5); MEAN CORPUSCULAR VOLUME 93.2 fl (80.0-96.0); PLATELET COUNT, AUTOMATED 113 10^3/uL (150-450); WHITE BLOOD COUNT 8.8 10^3/uL (4.0-10.0)
[2024-05-12 04:21] LABS: BLOOD UREA NITROGEN 24 MG/DL (9-23); CALCIUM LEVEL 8.4 MG/DL (8.3-10.6); CARBON DIOXIDE LEVEL 28 MMOL/L (20-31); CHLORIDE LEVEL 109 MMOL/L (98-107); CREATININE FOR GFR 0.74 MG/DL (0.70-1.30); GLOMERULAR FILTRATION RATE > 60.0 (>35); GLUCOSE, FASTING 146 MG/DL (74-106); POTASSIUM SERUM 3.9 MMOL/L (3.5-5.1); SODIUM LEVEL 140 MMOL/L (136-145)
[2024-05-12] MEDS: ISOVUE-300 61% 100ML VIAL As Ordered ONE (08:55)
[2024-05-12] MEDS: LIDOCAINE 2% 5ML JELLY UROJET As Ordered ONE (09:41)
[2024-05-12] MEDS ORDERED: ePHEDrine SULFATE 25 MG/5 ML(5MG/ML) SYRINGE As Ordered ONE (10:20)
[2024-05-12] MEDS ORDERED: MEPERIDINE 25 MG/ML 1ML VIAL IV PRN (10:25)
[2024-05-12] MEDS ORDERED: ONDANSETRON 4MG 2ML VIAL IV PRN (10:25)
[2024-05-12] MEDS ORDERED: HYDROMORPHONE HCL 0.5 MG/ 0.5 ML SYRINGE IV PRN (10:25)
[2024-05-12] MEDS ORDERED: fentaNYL 100 MCG/2 ML INJECTION IV PRN (10:25)
[2024-05-12] MEDS ORDERED: oxyCODONE 5MG TAB PO PRN (10:25)
[2024-05-12 12:09] LABS: HEMATOCRIT 30.4 % (42.0-52.0); HEMOGLOBIN 10.2 g/dl (13.5-17.5)
[2024-05-12] MEDS: MOM 30ML SUSPENSION UDC PO PRN (13:05)
[2024-05-12] MEDS: SENOKOT S TAB PO PRN (13:05)
[2024-05-12] MEDS: FINASTERIDE 5MG TAB PO SCH (13:11)
[2024-05-12 18:09] LABS: HEMOGLOBIN 9.8 g/dl (13.5-17.5)
[2024-05-12 23:56] LABS: HEMATOCRIT 28.5 % (42.0-52.0); HEMOGLOBIN 9.9 g/dl (13.5-17.5)
[2024-05-13] MEDS: RAMELTEON 8 MG TAB (ROZEREM) PO PRN (01:59)
[2024-05-13 05:13] VITALS: BP 94/60; TEMP 97.6; O2SAT 95
[2024-05-13 06:15] LABS: HEMATOCRIT 30.4 % (42.0-52.0); HEMOGLOBIN 10.2 g/dl (13.5-17.5); MEAN CORPUSCULAR HGB CONC 33.6 g/dl (32.0-36.5); MEAN CORPUSCULAR VOLUME 95.3 fl (80.0-96.0); PLATELET COUNT, AUTOMATED 144 10^3/uL (150-450); RED BLOOD COUNT 3.19 10^6/uL (4.30-6.10); WHITE BLOOD COUNT 11.3 10^3/uL (4.0-10.0)
[2024-05-13 06:38] LABS: BLOOD UREA NITROGEN 21 MG/DL (9-23); CALCIUM LEVEL 8.4 MG/DL (8.3-10.6); CARBON DIOXIDE LEVEL 28 MMOL/L (20-31); CHLORIDE LEVEL 107 MMOL/L (98-107); GLOMERULAR FILTRATION RATE > 60.0 (>35); GLUCOSE, FASTING 149 MG/DL (74-106); POTASSIUM SERUM 4.4 MMOL/L (3.5-5.1); SODIUM LEVEL 139 MMOL/L (136-145)
[2024-05-13 08:00] VITALS: BP 93/57; TEMP 97.4; O2SAT 97
[2024-05-13] MEDS: NS 500 ML IV ONE (09:19)
[2024-05-13] MEDS: cefTRIAXone SOD 1 GM in D5W MINI-BAG PLUS 50 ML IV SCH (09:20)
[2024-05-13] MEDS: LevoFLOXacin 750 MG TABLET PO SCH (14:24)
[2024-05-13 15:38] VITALS: BP 91/56; TEMP 97.2; O2SAT 93
[2024-05-13 20:00] VITALS: BP 106/62; TEMP 97.3; O2SAT 95
[2024-05-14 03:33] VITALS: BP 110/60; TEMP 97.3; O2SAT 100
[2024-05-14 07:36] VITALS: BP 133/62; TEMP 97.5; O2SAT 99
[2024-05-14 08:46] LABS: HEMATOCRIT 29.6 % (42.0-52.0); HEMOGLOBIN 10.2 g/dl (13.5-17.5); MEAN CORPUSCULAR HGB CONC 34.5 g/dl (32.0-36.5); MEAN CORPUSCULAR VOLUME 95.8 fl (80.0-96.0); PLATELET COUNT, AUTOMATED 147 10^3/uL (150-450); RED BLOOD COUNT 3.09 10^6/uL (4.30-6.10); WHITE BLOOD COUNT 10.5 10^3/uL (4.0-10.0)
[2024-05-14 09:22] LABS: BLOOD UREA NITROGEN 20 MG/DL (9-23); CALCIUM LEVEL 8.8 MG/DL (8.3-10.6); CARBON DIOXIDE LEVEL 28 MMOL/L (20-31); CHLORIDE LEVEL 108 MMOL/L (98-107); CREATININE FOR GFR 0.77 MG/DL (0.70-1.30); GLOMERULAR FILTRATION RATE > 60.0 (>35); GLUCOSE, FASTING 142 MG/DL (74-106); POTASSIUM SERUM 4.3 MMOL/L (3.5-5.1); SODIUM LEVEL 141 MMOL/L (136-145)
[2024-05-14 12:00] VITALS: BP 105/63; TEMP 97.6; O2SAT 97
[2024-05-14 16:00] VITALS: BP 124/64; TEMP 98.5; O2SAT 95
[2024-05-14 20:00] VITALS: BP 115/61; TEMP 97.6; O2SAT 96
[2024-05-15 04:00] VITALS: BP 130/85; TEMP 98.1; O2SAT 98
[2024-05-15 12:00] VITALS: BP 129/70; TEMP 97.9; O2SAT 97
[2024-05-15 20:00] VITALS: BP 111/66; TEMP 97.9; O2SAT 97
[2024-05-16 04:00] VITALS: BP 128/68; TEMP 97.9; O2SAT 98
[2024-05-16] MEDS ORDERED: MIRA33506 PO (10:35)
[2024-05-16] MEDS ORDERED: ASCO50TA PO (10:35)
[2024-05-16] MEDS ORDERED: SENN-52 PO (10:35)
[2024-05-16 12:58] LABS: PSA FREE 0.5 ng/mL; PSA TOTAL 7.2 ng/mL (< OR = 4.0)
== END 2024-05-16 11:03 | DRG 666 ==
LOC: M ED 10:13 → M ED INP 13:51 → M MSPAV 18:13 → M PCU 05-10 12:44 → M MS5PR 05-14 22:34
PROVIDERS: ADMIT General Practice; ATTEND Preventive Medicine Undersea and Hyperbaric Medicine
PROC: B246ZZZ Ultrasonography of Right and Left Heart (ICD-10-PCS; 2024-05-08)
PROC: 0VB08ZZ Excision of Prostate, Via Natural or Artificial Opening Endoscopic (ICD-10-PCS; principal; 2024-05-08 10:30)
PROC: 30233N1 Transfusion of Nonautologous Red Blood Cells into Peripheral Vein, Percutaneous Approach (ICD-10-PCS; 2024-05-10)
PROC: 0V508ZZ Destruction of Prostate, Via Natural or Artificial Opening Endoscopic (ICD-10-PCS; 2024-05-12)
PROC: 0TCB8ZZ Extirpation of Matter from Bladder, Via Natural or Artificial Opening Endoscopic (ICD-10-PCS; 2024-05-12)
DX: C67.9 Malignant neoplasm of bladder, unspecified (principal); D62 Acute posthemorrhagic anemia; I42.1 Obstructive hypertrophic cardiomyopathy; N40.1 Benign prostatic hyperplasia with lower urinary tract symptoms; I10 Essential (primary) hypertension; I08.3 Combined rheumatic disorders of mitral, aortic and tricuspid valves; R73.03 Prediabetes; E78.5 Hyperlipidemia, unspecified; Z66 Do not resuscitate; Z98.41 Cataract extraction status, right eye; Z98.42 Cataract extraction status, left eye; Z79.899 Other long term (current) drug therapy

== ENCOUNTER → 2024-05-17 | Outpatient (REF) ==
[~2024-05-17] MED LIST changes: +ASCO50TA PO; +CIPR0.3S37 OD; +KETO0.5S4 OD; +MIRA33506 PO; +PREDOPD OD; +PREDOPD OS; +ROSU5TAB40 PO; +SENN-52 PO
[2024-05-17 09:37] LABS: HEMATOCRIT 31.8 % (42.0-52.0); HEMOGLOBIN 10.5 g/dl (13.5-17.5); MEAN CORPUSCULAR HEMOGLOBIN 31.9 pg (27.0-33.0); MEAN CORPUSCULAR VOLUME 96.7 fl (80.0-96.0); PLATELET COUNT, AUTOMATED 204 10^3/uL (150-450); RED BLOOD COUNT 3.29 10^6/uL (4.30-6.10); WHITE BLOOD COUNT 6.3 10^3/uL (4.0-10.0)
[2024-05-17 09:59] LABS: BLOOD UREA NITROGEN 14 MG/DL (9-23); CALCIUM LEVEL 8.7 MG/DL (8.3-10.6); CARBON DIOXIDE LEVEL 24 MMOL/L (20-31); CHLORIDE LEVEL 108 MMOL/L (98-107); CREATININE FOR GFR 0.76 MG/DL (0.70-1.30); GLOMERULAR FILTRATION RATE > 60.0 (>35); GLUCOSE, FASTING 191 MG/DL (74-106); SODIUM LEVEL 138 MMOL/L (136-145)
== END ==
LOC: SKLAB2 08:14
PROVIDERS: ATTEND Internal Medicine
DX: C67.9 Malignant neoplasm of bladder, unspecified (principal); D63.0 Anemia in neoplastic disease

== ENCOUNTER → 2024-05-23 | Outpatient (REF) | payer MEDICARE, BC ==
[2024-05-23 09:57] LABS: BASO # 0.1 10^3/uL (0.0-0.2); BASO % 0.7 % (0.0-1.0); EOS # 0.1 10^3/uL (0.0-0.5); EOS % 1.6 % (0.0-3.0); HEMATOCRIT 37.1 % (42.0-52.0); LYMPH # 1.5 10^3/uL (1.5-5.0); LYMPH % 22.2 % (24.0-44.0); MEAN CORPUSCULAR HEMOGLOBIN 32.4 pg (27.0-33.0); MEAN CORPUSCULAR HGB CONC 32.3 g/dl (32.0-36.5); MEAN CORPUSCULAR VOLUME 100.3 fl (80.0-96.0); MONO # 0.5 10^3/uL (0.0-0.8); MONO % 6.8 % (2.0-8.0); NEUTROPHILS # 4.6 10^3/uL (1.5-8.5); NEUTROPHILS % 68.3 % (36.0-66.0); PLATELET COUNT, AUTOMATED 231 10^3/uL (150-450); WHITE BLOOD COUNT 6.8 10^3/uL (4.0-10.0)
[2024-05-23 10:21] LABS: BLOOD UREA NITROGEN 10 MG/DL (9-23); CALCIUM LEVEL 9.3 MG/DL (8.3-10.6); CARBON DIOXIDE LEVEL 28 MMOL/L (20-31); CHLORIDE LEVEL 106 MMOL/L (98-107); CREATININE FOR GFR 0.72 MG/DL (0.70-1.30); GLOMERULAR FILTRATION RATE > 60.0 (>35); GLUCOSE, FASTING 204 MG/DL (74-106); POTASSIUM SERUM 4.1 MMOL/L (3.5-5.1); SODIUM LEVEL 140 MMOL/L (136-145)
== END ==
LOC: SKLAB2 07:26
PROVIDERS: ATTEND Internal Medicine
DX: R31.9 Hematuria, unspecified (principal)

== ENCOUNTER → 2024-06-21 | Outpatient (CLI) | payer MEDICARE, BC ==
[~2024-06-21] MED LIST changes: +AMLO1TAB24 PO; +CVS5000S2 PO; +LEVO1TAB38 PO; +THERTAB52 PO; +VITA500C24 PO
== END ==
LOC: M ONCR 13:58
PROVIDERS: ATTEND General Practice
DX: C67.8 Malignant neoplasm of overlapping sites of bladder (principal); F17.218 Nicotine dependence, cigarettes, with other nicotine-induced disorders; Z79.899 Other long term (current) drug therapy; Z80.8 Family history of malignant neoplasm of other organs or systems; Z80.6 Family history of leukemia; Z87.891 Personal history of nicotine dependence

== ENCOUNTER 2024-07-10 13:30 | Outpatient (RCR) | payer MEDICARE, BC ==
[2024-06-11 14:05] VITALS: BP 142/74; O2SAT 96
[2024-06-11 15:16] LABS: BASO % 0.4 % (0.0-1.0); EOS # 0.1 10^3/uL (0.0-0.5); EOS % 0.6 % (0.0-3.0); HEMATOCRIT 34.4 % (42.0-52.0); HEMOGLOBIN 11.6 g/dl (13.5-17.5); LYMPH # 0.9 10^3/uL (1.5-5.0); LYMPH % 11.8 % (24.0-44.0); MEAN CORPUSCULAR HEMOGLOBIN 33.3 pg (27.0-33.0); MEAN CORPUSCULAR HGB CONC 33.7 g/dl (32.0-36.5); MEAN CORPUSCULAR VOLUME 98.9 fl (80.0-96.0); MONO # 0.7 10^3/uL (0.0-0.8); MONO % 8.4 % (2.0-8.0); NEUTROPHILS # 6.2 10^3/uL (1.5-8.5); NEUTROPHILS % 78.4 % (36.0-66.0); PLATELET COUNT, AUTOMATED 239 10^3/uL (150-450); RED BLOOD COUNT 3.48 10^6/uL (4.30-6.10); WHITE BLOOD COUNT 7.9 10^3/uL (4.0-10.0)
[2024-06-11 15:51] LABS: PROSTATIC SPECIFIC AG MONITOR 0.16 NG/ML (< 4.00)
[2024-06-11 15:54] LABS: ALBUMIN 3.7 G/DL (3.2-5.2); ALKALINE PHOSPHATASE 84 U/L (46-116); ALT/SGPT 14 U/L (7.0-40); AST/SGOT 12 U/L (<34); BILIRUBIN,TOTAL 0.7 MG/DL (0.3-1.2); BLOOD UREA NITROGEN 19 MG/DL (9-23); CALCIUM LEVEL 9.8 MG/DL (8.3-10.6); CARBON DIOXIDE LEVEL 26 MMOL/L (20-31); CHLORIDE LEVEL 109 MMOL/L (98-107); CREATININE FOR GFR 0.88 MG/DL (0.70-1.30); GLOMERULAR FILTRATION RATE > 60.0 (>35); GLUCOSE, FASTING 170 MG/DL (74-106); IRON (FE) 26 UG/DL (65-175); PERCENT SATURATION 8.5 % (19.7-50.0); POTASSIUM SERUM 4.1 MMOL/L (3.5-5.1); SODIUM LEVEL 143 MMOL/L (136-145); TOTAL IRON BINDING CAPACITY 305 UG/DL (250-425); TOTAL PROTEIN 6.5 G/DL (5.7-8.2)
[2024-06-11 15:56] LABS: FERRITIN 40.7 NG/ML (10.5-307.3)
[~2024-07-10] VITALS: Ht 175.3 cm; Wt 76.4 kg
[~2024-07-10 13:30] MED LIST changes: -ROSU5TAB40 PO; +ROSU5TAB49 PO
[2024-07-10 13:40] VITALS: BP 112/73; O2SAT 98
[2024-07-21] MEDS ORDERED: ASCO500T PO (15:48)
[2024-07-21] MEDS ORDERED: AMLO1TAB24 PO (15:48)
== END 2024-08-13 | disposition expired ==
LOC: M ONCM 13:30
PROVIDERS: ATTEND Internal Medicine Hematology & Oncology
DX: C67.9 Malignant neoplasm of bladder, unspecified (principal); I10 Essential (primary) hypertension; R73.03 Prediabetes; R00.1 Bradycardia, unspecified; Z79.899 Other long term (current) drug therapy
CPT/HCPCS: 36415; 80053; 82728; 83550; 84153; 85025; G0463

== ENCOUNTER 2024-07-10 14:23 | Outpatient (RCR) | payer MEDICARE, BC ==
[~2024-07-10 14:23] MED LIST changes: +ROSU5TAB40 PO; -ROSU5TAB49 PO
== END 2024-07-15 ==
LOC: M ONCR 14:23
PROVIDERS: ATTEND General Practice
DX: Z51.0 Encounter for antineoplastic radiation therapy (principal); C67.8 Malignant neoplasm of overlapping sites of bladder

== ENCOUNTER 2024-07-21 09:58 | Inpatient (IN) | payer MEDICARE, BC ==
[~2024-07-21] VITALS: Ht 177.8 cm; Wt 68.9 kg
[2024-07-21 11:46] LABS: BASO % 0.3 % (0.0-1.0); EOS % 0.1 % (0.0-3.0); HEMATOCRIT 37.1 % (42.0-52.0); HEMOGLOBIN 12.4 g/dl (13.5-17.5); LYMPH # 0.5 10^3/uL (1.5-5.0); LYMPH % 5.5 % (24.0-44.0); MEAN CORPUSCULAR HEMOGLOBIN 30.8 pg (27.0-33.0); MEAN CORPUSCULAR HGB CONC 33.4 g/dl (32.0-36.5); MEAN CORPUSCULAR VOLUME 92.3 fl (80.0-96.0); MONO # 0.6 10^3/uL (0.0-0.8); MONO % 6.6 % (2.0-8.0); NEUTROPHILS # 7.7 10^3/uL (1.5-8.5); NEUTROPHILS % 86.1 % (36.0-66.0); PLATELET COUNT, AUTOMATED 287 10^3/uL (150-450); RED BLOOD COUNT 4.02 10^6/uL (4.30-6.10)
[2024-07-21 11:58] LABS: INR 1.2; PARTIAL THROMBOPLASTIN TIME 27.2 SECONDS (24.8-34.2); PROTHROMBIN TIME 14.9 SECONDS (12.5-14.5)
[2024-07-21 12:08] LABS: BLOOD UREA NITROGEN 22 MG/DL (9-23); CALCIUM LEVEL 12.1 MG/DL (8.3-10.6); CARBON DIOXIDE LEVEL 26 MMOL/L (20-31); CHLORIDE LEVEL 99 MMOL/L (98-107); CREATININE FOR GFR 0.75 MG/DL (0.70-1.30); GLOMERULAR FILTRATION RATE > 60.0 (>35); GLUCOSE, FASTING 263 MG/DL (74-106); POTASSIUM SERUM 3.9 MMOL/L (3.5-5.1); SODIUM LEVEL 135 MMOL/L (136-145)
[2024-07-21] MEDS: NS 1,000 ML IV SCH (13:45)
[2024-07-21 15:00] VITALS: BP 125/82; TEMP 97.9; O2SAT 96
[2024-07-21] MEDS ORDERED: AMLO1TAB24 PO (15:48)
[2024-07-21] MEDS ORDERED: ASCO500T PO (15:48)
[2024-07-21] MEDS ORDERED: HOME MED LIST COMPLETE! XX SCH (15:55)
[2024-07-21 19:48] VITALS: BP 130/83; TEMP 97.7; O2SAT 100
[2024-07-21] MEDS: MIRTAZAPINE 7.5MG PER 1/2 TABLET PO SCH (20:18)
[2024-07-22 00:30] VITALS: BP 118/77; TEMP 97.9; O2SAT 98
[2024-07-22 04:19] VITALS: BP 114/79; TEMP 97.3; O2SAT 97
[2024-07-22 07:10] LABS: HEMATOCRIT 33.8 % (42.0-52.0); HEMOGLOBIN 10.9 g/dl (13.5-17.5); MEAN CORPUSCULAR HEMOGLOBIN 30.2 pg (27.0-33.0); MEAN CORPUSCULAR HGB CONC 32.2 g/dl (32.0-36.5); MEAN CORPUSCULAR VOLUME 93.6 fl (80.0-96.0); PLATELET COUNT, AUTOMATED 220 10^3/uL (150-450); RED BLOOD COUNT 3.61 10^6/uL (4.30-6.10); WHITE BLOOD COUNT 6.2 10^3/uL (4.0-10.0)
[2024-07-22 07:50] LABS: BLOOD UREA NITROGEN 21 MG/DL (9-23); CALCIUM LEVEL 11.5 MG/DL (8.3-10.6); CARBON DIOXIDE LEVEL 29 MMOL/L (20-31); CHLORIDE LEVEL 102 MMOL/L (98-107); CREATININE FOR GFR 0.76 MG/DL (0.70-1.30); GLOMERULAR FILTRATION RATE > 60.0 (>35); GLUCOSE, FASTING 195 MG/DL (74-106); POTASSIUM SERUM 3.5 MMOL/L (3.5-5.1); SODIUM LEVEL 138 MMOL/L (136-145)
[2024-07-22 08:00] VITALS: BP 140/79; TEMP 98.2; O2SAT 97
[2024-07-22 12:00] VITALS: BP 127/76; TEMP 97.9; O2SAT 97
[2024-07-22 16:00] VITALS: BP 123/81; TEMP 98.1; O2SAT 98
[2024-07-22] MEDS: ONDANSETRON 4MG 2ML VIAL IV PRN (18:08)
[2024-07-22 20:00] VITALS: BP 143/78; TEMP 97.9; O2SAT 95
[2024-07-22] MEDS: NS 1,000 ML IV SCH (20:14)
[2024-07-22 21:03] LABS: PHOSPHORUS LEVEL 3.4 MG/DL (2.4-5.1)
[2024-07-22 21:50] LABS: PTH INTACT 14.6 PG/ML (18.5-88.0)
[2024-07-23] VITALS (12 sets, daily range): BP systolic 109–142; BP diastolic 72–89; TEMP 97.2–98.4; O2SAT 94–100
[2024-07-23] MEDS ORDERED: NS 1,000 ML IV SCH (09:05)
[2024-07-23] MEDS ORDERED: ISOVUE-300 61% 100ML VIAL As Ordered ONE (09:09)
[2024-07-23] MEDS ORDERED: LIDOCAINE 1% MDV 20ML VIAL As Ordered ONE (09:09)
[2024-07-23] MEDS ORDERED: CIPROFLOXACIN/D5W 400 MG/200 ML BAG As Ordered ONE (09:27)
[2024-07-23] MEDS: CIPROFLOXACIN 400 MG in IV 1 EA IV ONE (09:31)
[2024-07-23] MEDS: NS 1,000 ML IV SCH (12:14)
[2024-07-23 14:25] LABS: BASO % 0.3 % (0.0-1.0); EOS % 0.2 % (0.0-3.0); HEMATOCRIT 32.9 % (42.0-52.0); HEMOGLOBIN 10.4 g/dl (13.5-17.5); LYMPH # 0.4 10^3/uL (1.5-5.0); MEAN CORPUSCULAR HEMOGLOBIN 29.5 pg (27.0-33.0); MEAN CORPUSCULAR HGB CONC 31.6 g/dl (32.0-36.5); MEAN CORPUSCULAR VOLUME 93.2 fl (80.0-96.0); MONO # 0.5 10^3/uL (0.0-0.8); MONO % 7.6 % (2.0-8.0); NEUTROPHILS % 83.1 % (36.0-66.0); PLATELET COUNT, AUTOMATED 192 10^3/uL (150-450); RED BLOOD COUNT 3.53 10^6/uL (4.30-6.10)
[2024-07-23 14:59] LABS: ALBUMIN 2.6 G/DL (3.2-5.2); ALKALINE PHOSPHATASE 146 U/L (46-116); ALT/SGPT 16 U/L (7.0-40); AST/SGOT 20 U/L (<34); BILIRUBIN,TOTAL 0.8 MG/DL (0.3-1.2); BLOOD UREA NITROGEN 24 MG/DL (9-23); CALCIUM LEVEL 11.3 MG/DL (8.3-10.6); CARBON DIOXIDE LEVEL 28 MMOL/L (20-31); CHLORIDE LEVEL 107 MMOL/L (98-107); CREATININE FOR GFR 0.94 MG/DL (0.70-1.30); GLOMERULAR FILTRATION RATE > 60.0 (>35); GLUCOSE, FASTING 212 MG/DL (74-106); POTASSIUM SERUM 3.6 MMOL/L (3.5-5.1); SODIUM LEVEL 142 MMOL/L (136-145); TOTAL PROTEIN 5.1 G/DL (5.7-8.2)
[2024-07-23] MEDS ORDERED: PILL CUTTER 1 EACH XX PRN (16:10)
[2024-07-23] MEDS: ZOLEDRONIC ACID 4 MG in IV 1 EA IV ONE (17:29)
[2024-07-23] MEDS: ROSUVASTATIN 10 MG TAB (CRESTOR) PO SCH (20:39)
[2024-07-23] MEDS: ACETAMINOPHEN 325 MG TAB PO PRN (20:39)
[2024-07-24 04:36] VITALS: BP 128/90; TEMP 97.7; O2SAT 96
[2024-07-24 08:20] LABS: BASO % 0.3 % (0.0-1.0); EOS % 0.2 % (0.0-3.0); HEMATOCRIT 33.9 % (42.0-52.0); HEMOGLOBIN 10.9 g/dl (13.5-17.5); LYMPH # 0.5 10^3/uL (1.5-5.0); LYMPH % 6.8 % (24.0-44.0); MEAN CORPUSCULAR HEMOGLOBIN 30.1 pg (27.0-33.0); MEAN CORPUSCULAR HGB CONC 32.2 g/dl (32.0-36.5); MEAN CORPUSCULAR VOLUME 93.6 fl (80.0-96.0); MONO # 0.5 10^3/uL (0.0-0.8); MONO % 7.1 % (2.0-8.0); NEUTROPHILS # 5.6 10^3/uL (1.5-8.5); NEUTROPHILS % 84.1 % (36.0-66.0); PLATELET COUNT, AUTOMATED 190 10^3/uL (150-450); RED BLOOD COUNT 3.62 10^6/uL (4.30-6.10); WHITE BLOOD COUNT 6.6 10^3/uL (4.0-10.0)
[2024-07-24 08:52] LABS: BLOOD UREA NITROGEN 23 MG/DL (9-23); CALCIUM LEVEL 11.4 MG/DL (8.3-10.6); CARBON DIOXIDE LEVEL 29 MMOL/L (20-31); CHLORIDE LEVEL 106 MMOL/L (98-107); CREATININE FOR GFR 0.87 MG/DL (0.70-1.30); GLOMERULAR FILTRATION RATE > 60.0 (>35); GLUCOSE, FASTING 278 MG/DL (74-106); POTASSIUM SERUM 3.5 MMOL/L (3.5-5.1); SODIUM LEVEL 140 MMOL/L (136-145)
[2024-07-24] MEDS: OMEGA-3 1000MG CAPSULE PO SCH (08:54)
[2024-07-24] MEDS: FERROUS SULFATE 325MG TAB PO SCH (08:54)
[2024-07-24] MEDS: ASCORBIC ACID 500 MG TAB PO SCH (08:54)
[2024-07-24 12:00] VITALS: BP 124/87; TEMP 97.5; O2SAT 99
[2024-07-24 20:02] VITALS: BP 110/74; TEMP 98.1; O2SAT 93
[2024-07-24 23:30] VITALS: BP 114/79; TEMP 100.7; O2SAT 94
[2024-07-25 00:15] VITALS: BP 111/77; TEMP 98.4
[2024-07-25 00:49] LABS: BASO % 0.4 % (0.0-1.0); EOS % 0.2 % (0.0-3.0); HEMATOCRIT 33.8 % (42.0-52.0); HEMOGLOBIN 10.8 g/dl (13.5-17.5); LYMPH # 0.3 10^3/uL (1.5-5.0); LYMPH % 5.2 % (24.0-44.0); MEAN CORPUSCULAR HEMOGLOBIN 30.3 pg (27.0-33.0); MEAN CORPUSCULAR VOLUME 94.9 fl (80.0-96.0); MONO # 0.2 10^3/uL (0.0-0.8); MONO % 4.7 % (2.0-8.0); NEUTROPHILS # 4.6 10^3/uL (1.5-8.5); NEUTROPHILS % 88.1 % (36.0-66.0); PLATELET COUNT, AUTOMATED 179 10^3/uL (150-450); RED BLOOD COUNT 3.56 10^6/uL (4.30-6.10); WHITE BLOOD COUNT 5.2 10^3/uL (4.0-10.0)
[2024-07-25 01:39] LABS: ALBUMIN 2.7 G/DL (3.2-5.2); ALKALINE PHOSPHATASE 149 U/L (46-116); ALT/SGPT 20 U/L (7.0-40); AST/SGOT 28 U/L (<34); BILIRUBIN,TOTAL 1.1 MG/DL (0.3-1.2); BLOOD UREA NITROGEN 26 MG/DL (9-23); CALCIUM LEVEL 11.4 MG/DL (8.3-10.6); CARBON DIOXIDE LEVEL 28 MMOL/L (20-31); CHLORIDE LEVEL 107 MMOL/L (98-107); CREATININE FOR GFR 0.94 MG/DL (0.70-1.30); GLOMERULAR FILTRATION RATE > 60.0 (>35); GLUCOSE, FASTING 268 MG/DL (74-106); MAGNESIUM LEVEL 1.9 MG/DL (1.8-2.4); POTASSIUM SERUM 3.6 MMOL/L (3.5-5.1); PROCALCITONIN >50.00 ng/ml; SODIUM LEVEL 142 MMOL/L (136-145); TOTAL PROTEIN 5.4 G/DL (5.7-8.2)
[2024-07-25] MEDS: CEFEPIME HCL 2 GM in D5W 50 ML IV SCH (04:15)
[2024-07-25 04:38] VITALS: BP 120/82; TEMP 98.4; O2SAT 96
[2024-07-25 07:20] LABS: BASO % 0.2 % (0.0-1.0); EOS % 0.2 % (0.0-3.0); HEMATOCRIT 34.9 % (42.0-52.0); HEMOGLOBIN 10.9 g/dl (13.5-17.5); LYMPH # 0.4 10^3/uL (1.5-5.0); LYMPH % 8.5 % (24.0-44.0); MEAN CORPUSCULAR HEMOGLOBIN 30.2 pg (27.0-33.0); MEAN CORPUSCULAR HGB CONC 31.2 g/dl (32.0-36.5); MEAN CORPUSCULAR VOLUME 96.7 fl (80.0-96.0); MONO # 0.3 10^3/uL (0.0-0.8); MONO % 5.8 % (2.0-8.0); NEUTROPHILS # 4.2 10^3/uL (1.5-8.5); NEUTROPHILS % 83.5 % (36.0-66.0); PLATELET COUNT, AUTOMATED 170 10^3/uL (150-450); RED BLOOD COUNT 3.61 10^6/uL (4.30-6.10)
[2024-07-25 07:43] LABS: BLOOD UREA NITROGEN 26 MG/DL (9-23); CALCIUM LEVEL 11.2 MG/DL (8.3-10.6); CARBON DIOXIDE LEVEL 29 MMOL/L (20-31); CHLORIDE LEVEL 106 MMOL/L (98-107); CREATININE FOR GFR 0.89 MG/DL (0.70-1.30); GLOMERULAR FILTRATION RATE > 60.0 (>35); GLUCOSE, FASTING 243 MG/DL (74-106); POTASSIUM SERUM 3.9 MMOL/L (3.5-5.1); SODIUM LEVEL 143 MMOL/L (136-145)
[2024-07-25] MEDS ORDERED: VARIBAR PUDDING 40% w/v 230ML TUBE As Ordered ONE (11:03)
[2024-07-25] MEDS ORDERED: VARIBAR NECTAR 40% w/v 240ML SUSP BTL As Ordered ONE (11:03)
[2024-07-25] MEDS ORDERED: E-Z-PAQUE 96% w/w SUSP 176GM BTL As Ordered ONE (11:03)
[2024-07-25] MEDS ORDERED: BARIUM SULFATE 700 MG TABLET (E-Z-DISK) As Ordered ONE (11:03)
[2024-07-25 12:00] VITALS: BP 110/80; TEMP 97.7; O2SAT 96
[2024-07-25 20:25] VITALS: BP 112/78; TEMP 97.7; O2SAT 95
[2024-07-26 04:15] VITALS: BP 135/97; TEMP 97.3; O2SAT 96
[2024-07-26 06:53] LABS: BLOOD UREA NITROGEN 34 MG/DL (9-23); CALCIUM LEVEL 10.5 MG/DL (8.3-10.6); CARBON DIOXIDE LEVEL 27 MMOL/L (20-31); CHLORIDE LEVEL 106 MMOL/L (98-107); CREATININE FOR GFR 1.07 MG/DL (0.70-1.30); GLOMERULAR FILTRATION RATE > 60.0 (>35); GLUCOSE, FASTING 266 MG/DL (74-106); POTASSIUM SERUM 3.7 MMOL/L (3.5-5.1); SODIUM LEVEL 143 MMOL/L (136-145)
[2024-07-26 06:56] LABS: BASO % 0.3 % (0.0-1.0); EOS % 0.1 % (0.0-3.0); HEMATOCRIT 34.6 % (42.0-52.0); LYMPH # 0.7 10^3/uL (1.5-5.0); LYMPH % 10.3 % (24.0-44.0); MEAN CORPUSCULAR HEMOGLOBIN 30.1 pg (27.0-33.0); MEAN CORPUSCULAR HGB CONC 31.8 g/dl (32.0-36.5); MEAN CORPUSCULAR VOLUME 94.5 fl (80.0-96.0); MONO # 0.4 10^3/uL (0.0-0.8); MONO % 5.9 % (2.0-8.0); NEUTROPHILS # 5.7 10^3/uL (1.5-8.5); PLATELET COUNT, AUTOMATED 166 10^3/uL (150-450); RED BLOOD COUNT 3.66 10^6/uL (4.30-6.10)
[2024-07-26 08:00] VITALS: BP 126/70; TEMP 97.3; O2SAT 95
[2024-07-26 12:45] VITALS: BP 120/72; TEMP 97.3; O2SAT 94
[2024-07-26] MEDS ORDERED: GLUCOSE 4 GM CHEW PO PRN (13:10)
[2024-07-26] MEDS ORDERED: GLUCAGON INJ 1MG VIAL SC PRN (13:10)
[2024-07-26] MEDS ORDERED: DEXTROSE 50% 50ML SYRINGE IV PRN (13:10)
[2024-07-26] MEDS: INSULIN LISPRO (NovoLOG) PER UNIT SC SCH (18:16)
[2024-07-26 20:00] VITALS: BP 138/71; TEMP 98.1; O2SAT 94
[2024-07-27 04:00] VITALS: BP 136/86; TEMP 97.5; O2SAT 97
[2024-07-27 07:11] LABS: BASO % 0.3 % (0.0-1.0); EOS % 0.3 % (0.0-3.0); HEMOGLOBIN 10.7 g/dl (13.5-17.5); LYMPH # 0.8 10^3/uL (1.5-5.0); LYMPH % 10.6 % (24.0-44.0); MEAN CORPUSCULAR HEMOGLOBIN 30.2 pg (27.0-33.0); MEAN CORPUSCULAR HGB CONC 32.4 g/dl (32.0-36.5); MEAN CORPUSCULAR VOLUME 93.2 fl (80.0-96.0); MONO # 0.5 10^3/uL (0.0-0.8); MONO % 6.7 % (2.0-8.0); NEUTROPHILS # 6.2 10^3/uL (1.5-8.5); NEUTROPHILS % 80.4 % (36.0-66.0); PLATELET COUNT, AUTOMATED 174 10^3/uL (150-450); RED BLOOD COUNT 3.54 10^6/uL (4.30-6.10); WHITE BLOOD COUNT 7.7 10^3/uL (4.0-10.0)
[2024-07-27 07:36] LABS: CALCIUM LEVEL 10.5 MG/DL (8.3-10.6); CREATININE FOR GFR 1.5 MG/DL (0.70-1.30); GLOMERULAR FILTRATION RATE 47.2 (>35); POTASSIUM SERUM 3.6 MMOL/L (3.5-5.1)
[2024-07-27 07:53] LABS: HEMOGLOBIN A1c 6.2 % (4.0-6.0)
[2024-07-27 08:00] VITALS: BP 123/86; TEMP 97.7; O2SAT 97
[2024-07-27] MEDS: LevoFLOXacin 750 MG TABLET PO SCH (11:14)
[2024-07-27 12:00] VITALS: BP 114/80; TEMP 97.7; O2SAT 96
[2024-07-27 16:00] VITALS: BP 109/75; TEMP 97.9; O2SAT 95
[2024-07-27 20:00] VITALS: BP 111/73; TEMP 98.6; O2SAT 93
[2024-07-28 06:20] LABS: BASO % 0.3 % (0.0-1.0); EOS % 0.3 % (0.0-3.0); HEMATOCRIT 32.3 % (42.0-52.0); HEMOGLOBIN 10.3 g/dl (13.5-17.5); LYMPH # 0.8 10^3/uL (1.5-5.0); LYMPH % 11.2 % (24.0-44.0); MEAN CORPUSCULAR HEMOGLOBIN 29.3 pg (27.0-33.0); MEAN CORPUSCULAR HGB CONC 31.9 g/dl (32.0-36.5); MEAN CORPUSCULAR VOLUME 91.8 fl (80.0-96.0); MONO # 0.5 10^3/uL (0.0-0.8); MONO % 6.5 % (2.0-8.0); NEUTROPHILS # 5.8 10^3/uL (1.5-8.5); NEUTROPHILS % 80.2 % (36.0-66.0); PLATELET COUNT, AUTOMATED 169 10^3/uL (150-450); RED BLOOD COUNT 3.52 10^6/uL (4.30-6.10); WHITE BLOOD COUNT 7.3 10^3/uL (4.0-10.0)
[2024-07-28 06:34] LABS: BLOOD UREA NITROGEN 41 MG/DL (9-23); CALCIUM LEVEL 10.4 MG/DL (8.3-10.6); CARBON DIOXIDE LEVEL 26 MMOL/L (20-31); CHLORIDE LEVEL 106 MMOL/L (98-107); CREATININE FOR GFR 1.14 MG/DL (0.70-1.30); GLOMERULAR FILTRATION RATE > 60.0 (>35); GLUCOSE, FASTING 256 MG/DL (74-106); POTASSIUM SERUM 3.2 MMOL/L (3.5-5.1); SODIUM LEVEL 143 MMOL/L (136-145)
[2024-07-28] MEDS: POTASSIUM CHLORIDE 10MEQ SR TABLET PO ONE (08:41)
[2024-07-28 12:00] VITALS: BP 107/65; TEMP 98.2; O2SAT 98
[2024-07-28 19:49] VITALS: BP 127/76; TEMP 97.5; O2SAT 97
[2024-07-29 04:25] VITALS: BP 106/70; TEMP 97.5; O2SAT 96
[2024-07-29 05:50] LABS: BASO % 0.1 % (0.0-1.0); EOS % 0.1 % (0.0-3.0); HEMATOCRIT 33.1 % (42.0-52.0); HEMOGLOBIN 10.7 g/dl (13.5-17.5); LYMPH # 1.1 10^3/uL (1.5-5.0); LYMPH % 13.6 % (24.0-44.0); MEAN CORPUSCULAR HEMOGLOBIN 29.7 pg (27.0-33.0); MEAN CORPUSCULAR HGB CONC 32.3 g/dl (32.0-36.5); MEAN CORPUSCULAR VOLUME 91.9 fl (80.0-96.0); MONO # 0.5 10^3/uL (0.0-0.8); MONO % 6.7 % (2.0-8.0); NEUTROPHILS # 6.3 10^3/uL (1.5-8.5); NEUTROPHILS % 78.3 % (36.0-66.0); PLATELET COUNT, AUTOMATED 170 10^3/uL (150-450); WHITE BLOOD COUNT 8.1 10^3/uL (4.0-10.0)
[2024-07-29 06:13] LABS: BLOOD UREA NITROGEN 38 MG/DL (9-23); CALCIUM LEVEL 10.4 MG/DL (8.3-10.6); CARBON DIOXIDE LEVEL 24 MMOL/L (20-31); CHLORIDE LEVEL 106 MMOL/L (98-107); CREATININE FOR GFR 1.16 MG/DL (0.70-1.30); GLOMERULAR FILTRATION RATE > 60.0 (>35); GLUCOSE, FASTING 279 MG/DL (74-106); POTASSIUM SERUM 3.3 MMOL/L (3.5-5.1); SODIUM LEVEL 143 MMOL/L (136-145)
[2024-07-29] MEDS: POTASSIUM CHLORIDE 10MEQ SR TABLET PO ONE (08:00)
[2024-07-29 19:44] VITALS: BP 111/75; TEMP 97.9; O2SAT 97
[2024-07-30 04:21] VITALS: BP 119/76; TEMP 98.2; O2SAT 96
[2024-07-30 04:58] VITALS: TEMP 99.8
[2024-07-30 07:48] LABS: BASO % 0.3 % (0.0-1.0); EOS % 0.1 % (0.0-3.0); HEMATOCRIT 33.2 % (42.0-52.0); HEMOGLOBIN 10.6 g/dl (13.5-17.5); LYMPH # 0.8 10^3/uL (1.5-5.0); LYMPH % 10.4 % (24.0-44.0); MEAN CORPUSCULAR HEMOGLOBIN 30.3 pg (27.0-33.0); MEAN CORPUSCULAR HGB CONC 31.9 g/dl (32.0-36.5); MEAN CORPUSCULAR VOLUME 94.9 fl (80.0-96.0); MONO # 0.6 10^3/uL (0.0-0.8); MONO % 7.1 % (2.0-8.0); NEUTROPHILS # 6.5 10^3/uL (1.5-8.5); NEUTROPHILS % 80.6 % (36.0-66.0); PLATELET COUNT, AUTOMATED 171 10^3/uL (150-450)
[2024-07-30 08:20] LABS: CREATININE FOR GFR 1.29 MG/DL (0.70-1.30); GLOMERULAR FILTRATION RATE 56.2 (>35); POTASSIUM SERUM 3.6 MMOL/L (3.5-5.1)
[2024-07-30 12:00] VITALS: BP 122/82; TEMP 97.5; O2SAT 94
[2024-07-30 19:40] VITALS: BP 107/70; TEMP 98.1; O2SAT 95
[2024-07-31 04:24] VITALS: BP 123/82; TEMP 97.7; O2SAT 96
[2024-07-31 21:05] VITALS: BP 99/65; TEMP 97.9; O2SAT 92
[2024-07-31 21:08] VITALS: BP 98/62
[2024-08-01 04:00] VITALS: BP 133/76; TEMP 97.9; O2SAT 97
[2024-08-01 12:41] VITALS: BP 115/80; TEMP 97.9; O2SAT 96
[2024-08-01 19:44] VITALS: BP 108/79; TEMP 97.9; O2SAT 95
[2024-08-02 04:00] VITALS: BP 124/76; TEMP 97.9; O2SAT 97
[2024-08-02 12:00] VITALS: BP 110/75; TEMP 97.7; O2SAT 97
[2024-08-02 20:00] VITALS: BP 131/79; TEMP 98.1; O2SAT 95
[2024-08-03 04:00] VITALS: BP 127/90; TEMP 97.9; O2SAT 97
[2024-08-03 06:18] LABS: BASO % 0.4 % (0.0-1.0); HEMATOCRIT 33.8 % (42.0-52.0); HEMOGLOBIN 10.5 g/dl (13.5-17.5); LYMPH # 0.5 10^3/uL (1.5-5.0); LYMPH % 5.6 % (24.0-44.0); MEAN CORPUSCULAR HEMOGLOBIN 29.8 pg (27.0-33.0); MEAN CORPUSCULAR HGB CONC 31.1 g/dl (32.0-36.5); MONO # 0.4 10^3/uL (0.0-0.8); MONO % 4.3 % (2.0-8.0); NEUTROPHILS % 86.8 % (36.0-66.0); PLATELET COUNT, AUTOMATED 168 10^3/uL (150-450); RED BLOOD COUNT 3.52 10^6/uL (4.30-6.10); WHITE BLOOD COUNT 9.2 10^3/uL (4.0-10.0)
[2024-08-03 06:45] LABS: ALBUMIN 2.4 G/DL (3.2-5.2); BILIRUBIN,TOTAL 0.5 MG/DL (0.3-1.2); CREATININE FOR GFR 2.33 MG/DL (0.70-1.30); GLOMERULAR FILTRATION RATE 28.4 (>35); POTASSIUM SERUM 3.2 MMOL/L (3.5-5.1); TOTAL PROTEIN 5.5 G/DL (5.7-8.2)
[2024-08-03] MEDS ORDERED: MIRTAZAPINE 7.5MG PER 1/2 TABLET PO PRN (08:15)
[2024-08-03] MEDS: NS 1,000 ML IV ONE (08:50)
[2024-08-03 12:00] VITALS: BP 114/70; TEMP 97.5; O2SAT 97
[2024-08-03] MEDS: POTASSIUM CHLORIDE 10MEQ SR TABLET PO ONE (12:38)
[2024-08-03 19:39] VITALS: BP 103/64; TEMP 97.7; O2SAT 96
[2024-08-04 04:14] VITALS: BP 114/80; TEMP 97.7; O2SAT 97
[2024-08-04 08:21] LABS: CALCIUM LEVEL 8.3 MG/DL (8.3-10.6); CREATININE FOR GFR 2.68 MG/DL (0.70-1.30); GLOMERULAR FILTRATION RATE 24.2 (>35); POTASSIUM SERUM 3.2 MMOL/L (3.5-5.1)
[2024-08-04] MEDS: LEVEMIR (INSULIN DETEMIR) 1 UNITS/0.01ML SC SCH (08:28)
[2024-08-04 12:00] VITALS: BP 107/78; TEMP 97.7; O2SAT 94
[2024-08-04] MEDS: POTASSIUM CHLORIDE 10% LIQ 20MEQ/15ML UDC PO ONE (12:56)
[2024-08-04] MEDS: NS 500 ML IV ONE (12:56)
[2024-08-04] MEDS ORDERED: POTASSIUM CHLORIDE 10MEQ SR TABLET PO ONE (13:00)
[2024-08-04] MEDS: NS 0.45% 1,000 ML IV SCH (13:57)
[2024-08-04 19:35] VITALS: BP 113/70; TEMP 97.5; O2SAT 96
[2024-08-05 04:12] VITALS: BP 130/71; TEMP 97.7; O2SAT 97
[2024-08-05 07:00] VITALS: BP 109/66; TEMP 97.7; O2SAT 99
[2024-08-05 08:04] LABS: CALCIUM LEVEL 7.3 MG/DL (8.3-10.6); CREATININE FOR GFR 2.79 MG/DL (0.70-1.30); GLOMERULAR FILTRATION RATE 23.1 (>35); POTASSIUM SERUM 3.6 MMOL/L (3.5-5.1)
[2024-08-05] MEDS: LEVEMIR (INSULIN DETEMIR) 1 UNITS/0.01ML SC SCH (09:06)
[2024-08-05 11:50] VITALS: BP 134/72; TEMP 97.9; O2SAT 97
[2024-08-05 20:09] VITALS: BP 121/76; TEMP 97.5; O2SAT 96
[2024-08-06 04:02] VITALS: BP 105/61; TEMP 97.7; O2SAT 98
[2024-08-06 06:28] LABS: HEMATOCRIT 29.8 % (42.0-52.0); HEMOGLOBIN 9.5 g/dl (13.5-17.5); MEAN CORPUSCULAR HEMOGLOBIN 30.3 pg (27.0-33.0); MEAN CORPUSCULAR HGB CONC 31.9 g/dl (32.0-36.5); MEAN CORPUSCULAR VOLUME 94.9 fl (80.0-96.0); PLATELET COUNT, AUTOMATED 122 10^3/uL (150-450); RED BLOOD COUNT 3.14 10^6/uL (4.30-6.10); WHITE BLOOD COUNT 8.7 10^3/uL (4.0-10.0)
[2024-08-06 06:52] LABS: CALCIUM LEVEL 7.3 MG/DL (8.3-10.6); CREATININE FOR GFR 2.49 MG/DL (0.70-1.30); GLOMERULAR FILTRATION RATE 26.3 (>35); POTASSIUM SERUM 3.1 MMOL/L (3.5-5.1)
[2024-08-06] MEDS: KCL 40MEQ IN D5/0.45NS 1000ML 1,000 ML IV SCH (08:42)
[2024-08-06 09:07] LABS: ANISOCYTOSIS 1+; ATYPICAL LYMPH 1 % (0-5); HYPOCHROMASIA 1+; LYMPHOCYTES 4 % (16-44); METAMYELOCYTES 1 % (0-0); MONOCYTES 1 % (0-5); MYELOCYTES 2 % (0-0); NEUTROPHILS 87 % (28-66)
[2024-08-06 09:08] LABS: PLATELET ESTIMATE NORMAL (NORMAL)
[2024-08-06 12:00] VITALS: BP 122/78; TEMP 97.7; O2SAT 97
[2024-08-06] MEDS ORDERED: ONDANSETRON 4MG ORAL DISINTEGRATING TAB PO PRN (15:40)
[2024-08-06] MEDS ORDERED: ACETAMINOPHEN 325 MG TAB PO PRN (15:40)
[2024-08-06] MEDS ORDERED: ATROPINE SULFATE 1% OPHTH SOLN 2ML BTL SL PRN (15:40)
[2024-08-06] MEDS ORDERED: BISACODYL 10MG SUPP PR PRN (15:40)
[2024-08-06] MEDS: LORazepam 1 MG TAB SL PRN (17:54)
[2024-08-06] MEDS: MORPHINE 10MG/0.5ML ORAL CONCENTRATE SOLUTION U/D SL PRN (17:54)
[2024-08-12] MEDS: SCOPOLAMINE 1MG TRANSDERMAL PATCH TOP PRN (13:11)
[2024-08-12] MEDS: HYOSCYAMINE SULFATE 0.125 MG SUBL TABLET PO PRN (16:27)
== END 2024-08-13 11:11 | disposition expired | DRG 698 ==
LOC: M ED 09:58 → M ED INP 09:59 → M MS5PR 15:00 → OBSVTOIN 07-23 12:09 → M ED INP 07-26 21:03 → M MS5PR 07-26 21:05
PROVIDERS: ADMIT Student in an Organized Health Care Education/Training Program; ATTEND Internal Medicine Nephrology
PROC: 0T9030Z Drainage of Right Kidney with Drainage Device, Percutaneous Approach (ICD-10-PCS; principal; 2024-07-23 10:00)
DX: T83.022A Displacement of nephrostomy catheter, initial encounter (principal); E43 Unspecified severe protein-calorie malnutrition; G92.8 Other toxic encephalopathy; A41.9 Sepsis, unspecified organism; I42.1 Obstructive hypertrophic cardiomyopathy; N13.30 Unspecified hydronephrosis; E87.0 Hyperosmolality and hypernatremia; C79.82 Secondary malignant neoplasm of genital organs; N17.9 Acute kidney failure, unspecified; T83.511A Infection and inflammatory reaction due to indwelling urethral catheter, initial encounter; N39.0 Urinary tract infection, site not specified; C67.5 Malignant neoplasm of bladder neck; Y84.8 Other medical procedures as the cause of abnormal reaction of the patient, or of later complication, without mention of misadventure at the time of the procedure; N40.0 Benign prostatic hyperplasia without lower urinary tract symptoms; N18.9 Chronic kidney disease, unspecified; Z51.5 Encounter for palliative care; Z66 Do not resuscitate; B95.8 Unspecified staphylococcus as the cause of diseases classified elsewhere; I12.9 Hypertensive chronic kidney disease with stage 1 through stage 4 chronic kidney disease, or unspecified chronic kidney disease; E78.5 Hyperlipidemia, unspecified; E87.6 Hypokalemia; R73.03 Prediabetes; E83.52 Hypercalcemia; R26.89 Other abnormalities of gait and mobility; D63.0 Anemia in neoplastic disease; I34.0 Nonrheumatic mitral (valve) insufficiency; R13.10 Dysphagia, unspecified; Z79.899 Other long term (current) drug therapy

== ENCOUNTER 2024-08-06 09:30 | Outpatient (RCR) | payer MEDICARE, BC ==
[~2024-08-06 09:30] MED LIST changes: +ASCO500T PO; -ROSU5TAB40 PO; +ROSU5TAB49 PO
== END 2024-08-13 ==
LOC: M ONCR 09:30
PROVIDERS: ATTEND General Practice
DX: Z51.0 Encounter for antineoplastic radiation therapy (principal); C67.8 Malignant neoplasm of overlapping sites of bladder